=== PATIENT | male | born 1965 | race American Indian/Alaskan Native ===

== ENCOUNTER 2020-11-23 14:53 | Inpatient (IN) | payer OTHER ==
[~2020-11-23 14:53] MED LIST: KETOROLAC 30 MG/1 ML INJ ONE; ROCURONIUM 50 MG/5 ML INJ IV ONE
--- NOTE | 2020-11-23 15:25 | Emergency Department Report ---
ED General Adult HPI - General Chief complaint: Abdominal Pain Stated complaint: ABD PAIN PUI?: No Time Seen by Provider: 11/23/20 15:22 Source: patient, EMS ( EMS documentation not available at time of chart dictation ), RN notes reviewed Mode of arrival: Stretcher Limitations: Physical Limitation - History of Present Illness Initial comments: The patient was evaluated in the emergency department for symptoms described in the history of present illness. He/she was evaluated in the context of the global COVID-19 pandemic, which necessitated consideration that the patient might be at risk for infection with the virus that causes COVID-19. Institutional protocols and algorithms that pertain to the evaluation of patients at risk for COVID-19 are in a state of rapid change based on information released by regulatory bodies including the CDC and federal and state organizations. These policies and algorithms were followed during the patient's care in the emergency department. Please note that these policies, procedures and recommendations changed on a rapid basis. The patient is a 55-year-old gentleman. He is not known to myself previously. He denies chronic medical conditions. He occasionally consumes tobacco, and occasionally consumes cannabis. Denies history of abdominal surgeries. He presents to the ER with a complaint of acute on subacute abdominal pain, nausea vomiting. Patient states abdominal pain is diffuse. He denies fever, loss of taste and smell, admits to dry cough, denies chest pain, denies testicular pain and urinary symptoms. He was reportedly seen at another hospital yesterday, and diagnosed with nonspecific viral symptoms. Patient states no relief with taking a hot bath or hot shower. Abdominal pain is sharp and throbbing and aching, increases with palpation and and has no relieving factors -: Gradual, days(s) Location: abdomen Quality: other Consistency: constant Improves with: other Worsens with: other - Related Data Allergies Allergy/AdvReac Type Severity Reaction Status Date / Time No Known Allergies Allergy Unverified 11/23/20 15:26 ED Review of Systems ROS: Stated complaint: ABD PAIN Other details as noted in HPI Constitutional: diaphoresis, malaise, weakness. denies: fever Eyes: denies: eye discharge ENT: denies: epistaxis Respiratory: denies: cough Cardiovascular: denies: chest pain Gastrointestinal: abdominal pain, nausea, vomiting. denies: diarrhea, hemateme sis, melena, hematochezia Genitourinary: denies: dysuria, testicular pain Neurological: weakness Psychiatric: anxiety Hematological/Lymphatic: denies: easy bleeding ED Physical Exam - General Limitations: Physical Limitation General appearance: alert, anxious, in distress, obese - Head Head exam: Present: atraumatic, normocephalic - Eye Eye exam: Present: normal appearance, EOMI. Absent: nystagmus - ENT ENT exam: Present: normal exam, normal orophraynx, mucous membranes moist, normal external ear exam - Neck Neck exam: Present: normal inspection, full ROM. Absent: tenderness, meningismus - Respiratory Respiratory exam: Present: normal lung sounds bilaterally. Absent: respiratory distress, wheezes, rales, rhonchi, stridor, decreased breath sounds - Cardiovascular Cardiovascular Exam: Present: normal rhythm, tachycardia, normal heart sounds. Absent: bradycardia, irregular rhythm, systolic murmur, diastolic murmur, rubs, gallop - GI/Abdominal GI/Abdominal exam: Present: soft, tenderness, guarding (Voluntary guarding), r ebound. Absent: distended, rigid, pulsatile mass - exam: Present: normal inspection, other (There is normal testicular lie. There is normal cremasteric reflex. There is no testicular tenderness. There is no testicular swelling). Absent: testicular tenderness External exam: Present: normal external exam, other (Chaperoned by Anitra Álvarez) - Extremities Exam Extremities exam: Present: normal inspection, full ROM, other (2+ pulses noted in the bilateral upper and lower extremities. There is no palpable cord. negative Homans sign. Muscular compartments are soft. The pelvis is stable.). Absent: pedal edema, calf tenderness - Back Exam Back exam: Present: normal inspection, full ROM. Absent: tenderness, CVA tenderness (R), CVA tenderness (L), paraspinal tenderness, vertebral tenderness - Neurological Exam Neurological exam: Present: alert, oriented X3, other (No facial droop. Tongue midline. Extraocular movements intact bilaterally. Facial sensation intact to light touch in V1, V2, V3 distribution bilaterally. 5 and a 5 strength in 4 extremities. Sensation intact to light touch in 4 extremities.). Absent: motor sensory deficit - Psychiatric Psychiatric exam: Present: anxious - Skin Skin exam: Present: warm, dry, intact, normal color. Absent: rash ED Course Vital Signs 05/07/0411/23/20 11/23/20 15:24 15:26 17:06 Temperature 97.4 F L Pulse Rate 116 H 114 H 122 H Respiratory 17 32 H 28 H Rate Blood Pressure 186/79 O2 Sat by Pulse 100 96 Oximetry 11/23/20 11/23/20 17:30 18:46 Temperature Pulse Rate 135 H Respiratory 29 H 22 Rate Blood Pressure 169/76 169/76 O2 Sat by Pulse 92 93 Oximetry - Reevaluation(s) Reevaluation #1: 11/23/20 15:55 Differential diagnosis, including but not limited to: Mesenteric ischemia, colitis, diverticulitis, obstruction, cannabinoid hyperemesis syndrome, cyclic vomiting syndrome, pancreatitis, appendicitis Assessment and plan: 55-year-old gentleman, who appears uncomfortable, diaphoretic, with a soft abdomen, with pain out of proportion to examination. This is his second ER visit in as many days. We will treat his pain aggressively, obtain appropriate laboratory studies, EKG urinalysis, and obtain CT angiogram abdomen pelvis, with delayed venous phase contrast study. The patient is awake, alert, oriented, sober, and he is in moderate distress. Reassess after initial data points. Have discussed this plan of care with the patient, who verbalized understanding. Reevaluation #2: 11/23/20 16:56 This patient had a delay in acquisition of diagnostics secondary to phlebotomy team being unable to obtain appropriate blood specimens for diagnostic work-up. IV access was easily established by nursing team. I therefore personally placed a right-sided external jugular 20-gauge IV, with consent from the patient verbally, and withdrew 24 cc of typical blood, from his EJ, without difficulty. Reevaluation #3: 11/23/20 17:46 Laboratory studies, including glucose of 313 appreciated. Suspect that there may be a component of diabetic gastroparesis. Insulin, haloperidol ordered, additional IV fluids ordered. Reevaluation #4: 11/23/20 18:[address] scan abdomen pelvis suggest perforated viscus and free fluid in the right upper quadrant. Antibiotics ordered. Haloperidol canceled. We have de- escalating insulin therapy to 5 units. We contacted general surgery on-call, Dr. Vazquez. I discussed the patient's history, physical, pertinent laboratory studies and imaging studies. We have requested emergent general surgical consultation. Dr. Vazquez is in route to evaluate the patient. He indicates he will take the patient to the operating room. Hospital physician, Dr. Garcia, to admit patient to the medical service. Reevaluation #5: 11/23/20 19:09 Patient informed of diagnostics and results, and plan of care. The patient is amenable to admission and surgical intervention at this time. - EJ/Peripheral Line Neck R Time Out Performed: Yes Indications: multiple IV sites needed Skin Cleansed in Sterile Fashion: Yes Size: 20 Dressing Placed: Tegaderm Patient Tolerated Procedure: well ED Medical Decision Making - Lab Data Result diagrams: 11/23/20 16:56 11/23/20 16:56 Vital Signs 11/23/20 15:26 Temperature 97.4 F L Pulse Rate 114 H Respiratory 32 H Rate Blood Pressure 186/79 O2 Sat by Pulse 100 Oximetry Lab Results 11/23/20 11/23/20 11/23/20 Range/Units 16:56 16:56 16:56 WBC 8.4 (4.5-11.0) K/mm3 RBC 4.57 (3.65-5.03) M/mm3 Hgb 15.2 (11.8-15.2) gm/dl Hct 42.6 (35.5-45.6) % MCV 93 (84-94) fl MCH 33 H (28-32) pg MCHC 36 H (32-34) % RDW 13.1 L (13.2-15.2) % Plt Count 413 (140-440) K/mm3 Lymph % (Auto) 8.8 L (13.4-35.0) % [place] % (Auto) 7.5 H (0.0-7.3) % Eos % (Auto) 0.0 (0.0-4.3) % Baso % (Auto) 0.9 (0.0-1.8) % Lymph # (Auto) 0.7 L (1.2-5.4) K/mm3 [place] # (Auto) 0.6 (0.0-0.8) K/mm3 Eos # (Auto) 0.0 (0.0-0.4) K/mm3 Baso # (Auto) 0.1 (0.0-0.1) K/mm3 Seg Neutrophils % 82.8 H (40.0-70.0) % Seg Neutrophils # 6.9 (1.8-7.7) K/mm3 PT 14.3 (12.2-14.9) Sec. INR 1.13 (0.87-1.13) Sodium 137 (137-145) mmol/L Potassium 4.0 (3.6-5.0) mmol/L Chloride 99.8 (98-107) mmol/L Carbon Dioxide 21 L (22-30) mmol/L Anion Gap 20 mmol/L BUN 15 (9-20) mg/dL Creatinine 0.8 (0.8-1.3) mg/dL Estimated GFR > 60 ml/min BUN/Creatinine Ratio 19 % Glucose 313 H (75-100) mg/dL Lactic Acid (0.7-2.0) mmol/L Calcium 8.7 (8.4-10.2) mg/dL Magnesium (1.7-2.3) mg/dL Total Bilirubin 1.60 H (0.1-1.2) mg/dL Direct Bilirubin 0.4 H (0-0.2) mg/dL Indirect Bilirubin 1.2 mg/dL AST 17 (5-40) units/L ALT 13 (7-56) units/L Alkaline Phosphatase 71 (35-129) units/L Total Creatine Kinase (55-170) units/L Troponin T (0.00-0.029) ng/mL Total Protein 7.6 (6.3-8.2) g/dL Albumin 3.8 L (3.9-5) g/dL Albumin/Globulin Ratio 1.0 % Lipase (13-60) units/L 11/23/20 11/23/20 11/23/20 Range/Units 16:56 16:56 16:56 WBC (4.5-11.0) K/mm3 RBC (3.65-5.03) M/mm3 Hgb (11.8-15.2) gm/dl Hct (35.5-45.6) % MCV (84-94) fl MCH (28-32) pg MCHC (32-34) % RDW (13.2-15.2) % Plt Count (140-440) K/mm3 Lymph % (Auto) (13.4-35.0) % [place] % (Auto) (0.0-7.3) % Eos % (Auto) (0.0-4.3) % Baso % (Auto) (0.0-1.8) % Lymph # (Auto) (1.2-5.4) K/mm3 [place] # (Auto) (0.0-0.8) K/mm3 Eos # (Auto) (0.0-0.4) K/mm3 Baso # (Auto) (0.0-0.1) K/mm3 Seg Neutrophils % (40.0-70.0) % Seg Neutrophils # (1.8-7.7) K/mm3 PT (12.2-14.9) Sec. INR (0.87-1.13) Sodium (137-145) mmol/L Potassium (3.6-5.0) mmol/L Chloride (98-107) mmol/L Carbon Dioxide (22-30) mmol/L Anion Gap mmol/L BUN (9-20) mg/dL Creatinine (0.8-1.3) mg/dL Estimated GFR ml/min BUN/Creatinine Ratio % Glucose (75-100) mg/dL Lactic Acid 1.90 (0.7-2.0) mmol/L Calcium (8.4-10.2) mg/dL Magnesium 2.10 (1.7-2.3) mg/dL Total Bilirubin (0.1-1.2) mg/dL Direct Bilirubin (0-0.2) mg/dL Indirect Bilirubin mg/dL AST (5-40) units/L ALT (7-56) units/L Alkaline Phosphatase (35-129) units/L Total Creatine Kinase 86 (55-170) units/L Troponin T < 0.010 (0.00-0.029) ng/mL Total Protein (6.3-8.2) g/dL Albumin (3.9-5) g/dL Albumin/Globulin Ratio % Lipase 18 (13-60) units/L Lab Results 11/23/20 11/23/20 11/23/20 Range/Units 16:56 16:56 16:56 WBC 8.4 (4.5-11.0) K/mm3 RBC 4.57 (3.65-5.03) M/mm3 Hgb 15.2 (11.8-15.2) gm/dl Hct 42.6 (35.5-45.6) % MCV 93 (84-94) fl MCH 33 H (28-32) pg MCHC 36 H (32-34) % RDW 13.1 L (13.2-15.2) % Plt Count 413 (140-440) K/mm3 Lymph % (Auto) 8.8 L (13.4-35.0) % [place] % (Auto) 7.5 H (0.0-7.3) % Eos % (Auto) 0.0 (0.0-4.3) % Baso % (Auto) 0.9 (0.0-1.8) % Lymph # (Auto) 0.7 L (1.2-5.4) K/mm3 [place] # (Auto) 0.6 (0.0-0.8) K/mm3 Eos # (Auto) 0.0 (0.0-0.4) K/mm3 Baso # (Auto) 0.1 (0.0-0.1) K/mm3 Seg Neutrophils % 82.8 H (40.0-70.0) % Seg Neutrophils # 6.9 (1.8-7.7) K/mm3 PT 14.3 (12.2-14.9) Sec. INR 1.13 (0.87-1.13) Sodium 137 (137-145) mmol/L Potassium 4.0 (3.6-5.0) mmol/L Chloride 99.8 (98-107) mmol/L Carbon Dioxide 21 L (22-30) mmol/L Anion Gap 20 mmol/L BUN 15 (9-20) mg/dL Creatinine 0.8 (0.8-1.3) mg/dL Estimated GFR > 60 ml/min BUN/Creatinine Ratio 19 % Glucose 313 H (75-100) mg/dL Lactic Acid (0.7-2.0) mmol/L Calcium 8.7 (8.4-10.2) mg/dL Magnesium (1.7-2.3) mg/dL Total Bilirubin 1.60 H (0.1-1.2) mg/dL Direct Bilirubin 0.4 H (0-0.2) mg/dL Indirect Bilirubin 1.2 mg/dL AST 17 (5-40) units/L ALT 13 (7-56) units/L Alkaline Phosphatase 71 (35-129) units/L Total Creatine Kinase (55-170) units/L Troponin T (0.00-0.029) ng/mL Total Protein 7.6 (6.3-8.2) g/dL Albumin 3.8 L (3.9-5) g/dL Albumin/Globulin Ratio 1.0 % Lipase (13-60) units/L 11/23/20 11/23/20 11/23/20 Range/Units 16:56 16:56 16:56 WBC (4.5-11.0) K/mm3 RBC (3.65-5.03) M/mm3 Hgb (11.8-15.2) gm/dl Hct (35.5-45.6) % MCV (84-94) fl MCH (28-32) pg MCHC (32-34) % RDW (13.2-15.2) % Plt Count (140-440) K/mm3 Lymph % (Auto) (13.4-35.0) % [place] % (Auto) (0.0-7.3) % Eos % (Auto) (0.0-4.3) % Baso % (Auto) (0.0-1.8) % Lymph # (Auto) (1.2-5.4) K/mm3 [place] # (Auto) (0.0-0.8) K/mm3 Eos # (Auto) (0.0-0.4) K/mm3 Baso # (Auto) (0.0-0.1) K/mm3 Seg Neutrophils % (40.0-70.0) % Seg Neutrophils # (1.8-7.7) K/mm3 PT (12.2-14.9) Sec. INR (0.87-1.13) Sodium (137-145) mmol/L Potassium (3.6-5.0) mmol/L Chloride (98-107) mmol/L Carbon Dioxide (22-30) mmol/L Anion Gap mmol/L BUN (9-20) mg/dL Creatinine (0.8-1.3) mg/dL Estimated GFR ml/min BUN/Creatinine Ratio % Glucose (75-100) mg/dL Lactic Acid 1.90 (0.7-2.0) mmol/L Calcium (8.4-10.2) mg/dL Magnesium 2.10 (1.7-2.3) mg/dL Total Bilirubin (0.1-1.2) mg/dL Direct Bilirubin (0-0.2) mg/dL Indirect Bilirubin mg/dL AST (5-40) units/L ALT (7-56) units/L Alkaline Phosphatase (35-129) units/L Total Creatine Kinase 86 (55-170) units/L Troponin T < 0.010 (0.00-0.029) ng/mL Total Protein (6.3-8.2) g/dL Albumin (3.9-5) g/dL Albumin/Globulin Ratio % Lipase 18 (13-60) units/L - EKG Data -: EKG Interpreted by Al EKG shows normal: sinus rhythm Rate: tachycardia - EKG Data When compared to previous EKG there are: previous EKG unavailable 11/23/20 16:44 Sinus tachycardia, 117 bpm. Left axis deviation, left anterior fascicular block, incomplete right bundle branch block. QTC 499 ms. Normal P wave axis. This is an abnormal EKG. This is not a STEMI. There is no prior EKG available for comparison. Time of interpretation: 16: 42 PM - Radiology Data Radiology results: pending, report reviewed, image reviewed [facility] [address] [place] [address] Cat Scan Report Signed Patient: NEELIMA ALVARES MR#: [id number] : 1965 Acct:[id number] Age/Sex: 55 / M ADM Date: 11/23/20 Loc: ED Attending Dr: Ordering Physician: SERAFIN SHEARER MD Date of Service: 11/23/20 Procedure(s): CT angio abdomen pelvis Accession Number(s): [id number] cc: SERAFIN SHEARER MD CTA ABDOMEN AND PELVIS WITHOUT AND WITH IV CONTRAST INDICATION: acute abd painn/v. TECHNIQUE: Axial CT images were obtained through the abdomen and pelvis before and after after injection of IV contrast. 3 plane MIP reconstructions were produced. All CT scans at this location are performed using CT dose reduction for ALARA by means of automated exposure control. COMPARISON: None available. FINDINGS: Aorta: Moderate atherosclerotic vascular calcifications. No dissection or aneurysm Renal arteries: No acute abnormality. Celiac artery: No acute abnormality. Superior mesenteric artery: No acute abnormality. Inferior mesenteric artery: No acute abnormality. Right iliac arteries: Moderate vascular calcifications. Left iliac arteries: Moderate vascular calcifications. LOWER CHEST: No significant abnormality. LIVER: No significant abnormality. GALLBLADDER: No significant abnormality. BILE DUCTS: No significant abnormality. PANCREAS: No significant abnormality. SPLEEN: No significant abnormality. ADRENALS: No significant abnormality. RIGHT KIDNEY and URETER: No significant abnormality. LEFT KIDNEY and URETER: 2 tiny subcentimeter cysts. STOMACH and SMALL BOWEL: 2 cm ulcer within the proximal duodenum image 34. Moderate duodenal wall thickening. Diffuse enhancement of small bowel and mild small bowel thickening characteristic for pe ritonitis. COLON: No significant abnormality. APPENDIX: No significant abnormality. PERITONEUM: Moderate amount of free fluid upper abdomen small amount of free pelvic fluid. Moderate pneumoperitoneum. No fluid collection. LYMPH NODES: No significant adenopathy. AORTA and ARTERIES: No significant abnormality. IVC and VEINS: No significant abnormality. ADDITIONAL FINDINGS: None. SKELETAL SYSTEM: No significant abnormality. Skeletal Structures: No acute osseous abnormality. IMPRESSION: 1. Perforated duodenal ulcer with moderate pneumoperitoneum, moderate amount of free fluid and diffuse peritonitis. CRITICAL RESULT: Perforated duodenal ulcer with moderate pneumoperitoneum Time of Discovery (CASUALTY UNDERWRITER/CDT): 5:50 PM 11/23/2020 Time of Communication (CASUALTY UNDERWRITER/CDT): 5:54 PM Central standard time 11/23/2020 Licensed Practitioner Receiving Report: Serafin Shearer MD Read-Back Performed: Yes. Signer Name: Ric Hinojosa MD Signed: 11/23/2020 6:57 PM Workstation Name: [id number] Transcribed By: TL Dictated By: Ric Hinojosa MD Electronically Authenticated By: Ric Hinojosa MD Signed Date/Time: 11/23/201856 DD/ 51 Critical Care Time: Yes Critical care time in (mins) excluding proc time.: 35 Critical care attestation.: If time is entered above; I have spent that time in minutes in the direct care of this critically ill patient, excluding procedure time. Critical Care Time: Critical care time includes multiple bedside reevaluations, interpretation of laboratory studies, radiology studies, discussion with multiple consulting services, including hospital medicine, and general surgery, and time spent updating patient on plan of care. This does not include procedure time. This patient is critically ill, with peritonitis, secondary to perforated small bowel. This requires emergent general surgical intervention, and without can gent intervention or diagnostics as performed, the patient would likely ED Disposition Clinical Impression: Acute abdominal pain, Hyperglycemia, Elevated blood pressure reading, Perforated abdominal viscus Disposition: OP ADMIT IP TO THIS HOSP Is pt being admited?: Yes Does the pt Need Aspirin: No Condition: Serious Referrals: PRIMARY CARE, [Primary Care Provider] - 3-5 Days
[2020-11-23] MEDS ORDERED: SODIUM CHLORIDE 0.9% 1000 ML 1,000 ML IV ONE (15:28)
[2020-11-23] MEDS ORDERED: HYDROmorphone 1 MG/1 ML INJ IV ONE ×3 (15:28→18:53)
[2020-11-23] MEDS ORDERED: ONDANSETRON 4 MG/2 ML INJ IV ONE (16:00)
[2020-11-23 17:08] LABS: Basophils # (Auto) 0.1 K/mm3 (0.0-0.1); Basophils % (Auto) 0.9 % (0.0-1.8); Lymphocytes # (Auto) 0.7 K/mm3 (1.2-5.4); Lymphocytes % (Auto) 8.8 % (13.4-35.0); Mean Corpuscular HGB Conc 36 % (32-34); Mean Corpuscular Volume 93 fl (84-94); Monocytes # (Auto) 0.6 K/mm3 (0.0-0.8); Monocytes % (Auto) 7.5 % (0.0-7.3); Platelet Count 413 K/mm3 (140-440); Red Blood Count 4.57 M/mm3 (3.65-5.03); Red Cell Distribution Width 13.1 % (13.2-15.2)
[2020-11-23 17:10] LABS: Hematocrit 42.6 % (35.5-45.6); Hemoglobin 15.2 gm/dl (11.8-15.2)
[2020-11-23 17:22] LABS: INR 1.13 (0.87-1.13)
[2020-11-23 17:39] LABS: Alanine Aminotransferase 13 units/L (7-56); Albumin 3.8 g/dL (3.9-5); BUN/Creatinine Ratio 19; Bilirubin,Direct 0.4 mg/dL (0-0.2); Blood Urea Nitrogen 15 mg/dL (9-20); Calcium 8.7 mg/dL (8.4-10.2); Hemolysis Index 13
[2020-11-23] MEDS ORDERED: HALOPERIDOL LACTATE 5 MG/1 ML INJ IM ONE (17:41)
[2020-11-23] MEDS ORDERED: INSULIN REGULAR, HUMAN 100 UNITS/1 ML IV ONE ×3 (17:41→23:57)
[2020-11-23] MEDS ORDERED: LACTATED RINGERS 1,000 ML IV ONE (17:41)
[2020-11-23] MEDS ORDERED: PIPERACIL/TAZOBACTA 4.5/NS 100 4.5 GM/100 ML VIAL IV ONE (18:51)
[2020-11-23] MEDS ORDERED: PANTOPRAZOLE 40 MG INJ IV ONE (18:54)
[2020-11-23] MEDS ORDERED: ALBUTEROL 2.5 MG/3 ML NEBU IH PRN (18:58)
--- NOTE | 2020-11-23 18:59 | History and Physical Report ---
History of Present Illness Chief complaint: My stomach hurts History of present illness: 55 YO Male with Nicotine Dependence presents to ED for evaluation. Patient reports "my stomach hurts". Patient states that he has experienced abdominal pain over the past 2 weeks with worsening symptoms over the past 1 day. Patient states that the symptoms were initially intermittent in nature but have become more persistent with persistent over the ensuing timeframe. Patient states that his pain is 6/10, constant, worsened with palpitation, diffuse. EMS was notified and upon arrival the patient was found to be in distress and subsequently transported to [facility] for further care and evaluation of the aforementioned symptoms. The patient was seen and evaluated in the emergency department. All lab and imaging studies reviewed. Patient underwent CT scan of the abdomen pelvis which revealed perforated viscus. Patient found to have clinical symptoms consistent with acute peritonitis. Surgical team consulted. Patient treated with empiric IV antibiotic therapy. Patient taken urgently to the operating room for surgical intervention. Patient denies fever, chills, chest pain, palpitation, productive cough, skin rash, recent ill contacts, ingestion of food/water from new or different sources, bright red blood per rectum, trauma, or known exposure to COVID-19. No prior admission for review. No medication listed at time of admission for reconciliation. Past History Past Medical History: other (See HPI) Past Surgical History: No surgical history, Other (Reviewed) Social history: , lives with family, smoking Family history: diabetes, hypertension Medications and Allergies Allergies Allergy/AdvReac Type Severity Reaction Status Date / Time No Known Allergies Allergy Unverified 11/23/20 15:26 Active Meds: Active Medications Piperacillin Sod/Tazobactam Sod (Zosyn/Ns 4.5gm/100ml) 4.5 gm in 100 mls @ 200 mls/hr IV ONCE ONE; Protocol Stop: 11/23/20 19:20 Review of Systems Constitutional: no weight loss, no weight gain, no fever, no sweats Ears, nose, mouth and throat: no ear pain, no ear discharge, no nose pain, no nasal discharge Cardiovascular: no chest pain, no orthopnea, no palpitations, no edema, no syn cope, no lightheadedness Respiratory: no cough, no cough with sputum, no hemoptysis, no dyspnea on exertion Gastrointestinal: abdominal pain, no nausea, no vomiting, no diarrhea, no constipation, no BRBPR, no melena Genitourinary Male: no hematuria, no flank pain, no discharge, no urinary frequency, no urinary hesitancy Rectal: no pain, no incontinence, no bleeding Musculoskeletal: no neck stiffness, no neck pain, no arm numbness/tingling, no shooting leg pain Integumentary: no rash, no pruritis, no redness, no sores, no wounds Neurological: no head injury, no transient paralysis, no paralysis, no parathesias, no numbness, no tingling Psychiatric: no anxiety, no memory loss, no hypersomnia, no change in appetite, no change in libido, no suicidal ideation Endocrine: no cold intolerance, no heat intolerance, no polyphagia, no excessive thirst, no polydipsia, no nocturia, no excessive sweating Hematologic/Lymphatic: no easy bruising, no easy bleeding Allergic/Immunologic: no urticaria, no allergic rhinitis, no wheezing Exam - Constitutional Vitals: Temp Pulse Resp BP Pulse Ox 97.4 F L 135 H 22 169/76 93 11/23/20 15:26 11/23/20 17:30 11/23/20 18:46 11/23/20 18:46 11/23/20 18:46 General appearance: Present: mild distress - EENT Eyes: Present: PERRL ENT: hearing intact, clear oral mucosa - Neck Neck: Present: supple, normal ROM - Respiratory Respiratory effort: normal Respiratory: bilateral: CTA - Cardiovascular Heart Sounds: Present: S1 & S2. Absent: rub, click - Extremities Extremities: pulses symmetrical, No edema Peripheral Pulses: within normal limits - Abdominal General gastrointestinal: Present: soft, tender, distended, rigid, hypoactive bowel sounds Male genitourinary: Present: normal - Integumentary Integumentary: Present: clear, warm, dry - Musculoskeletal Musculoskeletal: gait normal, strength equal bilaterally - Psychiatric Psychiatric: appropriate mood/affect, intact judgment & insight - Neurologic Neurologic: CNII-XII intact, moves all extremities HEART Score - HEART Score Troponin: Troponin T < 0.010 ng/mL (0.00-0.029) 11/23/20 16:56 Results - Labs CBC & Chem 7: 11/23/20 16:56 11/23/20 16:56 Labs: Abnormal lab results 11/23/20 11/23/20 Range/Units 16:56 16:56 MCH 33 H (28-32) pg MCHC 36 H (32-34) % RDW 13.1 L (13.2-15.2) % Lymph % (Auto) 8.8 L (13.4-35.0) % [place] % (Auto) 7.5 H (0.0-7.3) % Lymph # (Auto) 0.7 L (1.2-5.4) K/mm3 Seg Neutrophils % 82.8 H (40.0-70.0) % Carbon Dioxide 21 L (22-30) mmol/L Glucose 313 H (75-100) mg/dL Total Bilirubin 1.60 H (0.1-1.2) mg/dL Direct Bilirubin 0.4 H (0-0.2) mg/dL Albumin 3.8 L (3.9-5) g/dL Assessment and Plan - Patient Problems (1) Acute peritonitis Current Visit: Yes Status: Acute Plan to address problem: CT scan abdomen and pelvis, empiric IV antibiotic therapy, surgical team consulted. Patient pending surgical intervention, pain control, supportive care, n.p.o., IV fluid resuscitation therapy. Serial abdominal exam. Further care as per surgical team. (2) Perforated abdominal viscus Current Visit: Yes Status: Acute Plan to address problem: CT scan abdomen and pelvis, serial abdominal exam, surgical team consulted, patient is pending surgical intervention, supportive care. (3) Nicotine dependence Current Visit: Yes Status: Acute Qualifiers: Nicotine product type: cigarettes Substance use status: in withdrawal Qualified Code(s): F17.213 - Nicotine dependence, cigarettes, with withdrawal Plan to address problem: Smoking cessation counseling, supportive care, behavior change counseling, +15 minutes. (4) DVT prophylaxis Current Visit: Yes Status: Acute Plan to address problem: SCD to bilateral lower extremities while in bed.
--- NOTE | 2020-11-23 19:02 | Cat Scan Report ---
CTA ABDOMEN AND PELVIS WITHOUT AND WITH IV CONTRAST INDICATION: acute abd painn/v. TECHNIQUE: Axial CT images were obtained through the abdomen and pelvis before and after after injection of IV c ontrast. 3 plane MIP reconstructions were produced. All CT scans at this location are performed using CT dose reduction for ALARA by means of automated exposure control. COMPARISON: None available. FINDINGS: Aorta: Moderate atherosclerotic vascular calcifications. No dissection or aneurysm Renal arteries: No acute abnormality. Celiac artery: No acute abnormality. Superior mesenteric artery: No acute abnormality. Inferior mesenteric artery: No acute abnormality. Right iliac arteries: Moderate vascular calcifications. Left iliac arteries: Moderate vascular calcifications. LOWER CHEST: No significant abnormality. LIVER: No significant abnormality. GALLBLADDER: No significant abnormality. BILE DUCTS: No significant abnormality. PANCREAS: No significant abnormality. SPLEEN: No significant abnormality. ADRENALS: No significant abnormality. RIGHT KIDNEY and URETER: No significant abnormality. LEFT KIDNEY and URETER: 2 tiny subcentimeter cysts. STOMACH and SMALL BOWEL: 2 cm ulcer within the proximal duodenum image 34. Moderate duodenal wall thi ckening. Diffuse enhancement of small bowel and mild small bowel thickening characteristic for perito nitis. COLON: No significant abnormality. APPENDIX: No significant abnormality. PERITONEUM: Moderate amount of free fluid upper abdomen small amount of free pelvic fluid. Moderate p neumoperitoneum. No fluid collection. LYMPH NODES: No significant adenopathy. AORTA and ARTERIES: No significant abnormality. IVC and VEINS: No significant abnormality. ADDITIONAL FINDINGS: None. SKELETAL SYSTEM: No significant abnormality. Skeletal Structures: No acute osseous abnormality. IMPRESSION: 1. Perforated duodenal ulcer with moderate pneumoperitoneum, moderate amount of free fluid and diffus e peritonitis. CRITICAL RESULT: Perforated duodenal ulcer with moderate pneumoperitoneum Time of Discovery (CAP SEWER/CDT): 5:50 PM 11/23/2020 Time of Communication (CAP SEWER/CDT): 5:54 PM Central standard time 11/23/2020 Licensed Practitioner Receiving Report: Serafin Shearer MD Read-Back Performed: Yes. Signer Name: Ric Hinojosa MD Signed: 11/23/2020 6:57 PM Workstation Name: [id number]
--- NOTE | 2020-11-23 20:04 | Anesthesia Consultation ---
Anesthesia Consult and Med Hx Date of service: 11/23/20 - Airway Anesthetic Teeth Evaluation: Edentulous ROM Head & Neck: Adequate Mental/Hyoid Distance: Adequate Mallampati Class: Class II Intubation Access Assessment: Good - Pulmonary Exam CTA: Yes - Cardiac Exam Cardiac Exam: RRR - Pre-Operative Health Status ASA Pre-Surgery Classification: ASA2 Proposed Anesthetic Plan: General - Pulmonary Hx Smoking: Yes - Other Systems Hx Alcohol Use: Yes Hx Substance Use: Yes (thc)
--- NOTE | 2020-11-23 20:04 | Anesthesia Day of Surgery ---
Anesthesia Day of Surgery - Day of Surgery Patient Examined: Yes Patient H&P Reviewed: Yes Patient is NPO: Yes
[2020-11-23] MEDS ORDERED: HEPARIN 5,000 UNIT/1 ML VIAL ONE (20:24)
[2020-11-23] MEDS ORDERED: ONDANSETRON 4 MG/2 ML INJ ONE (21:00)
[2020-11-23] MEDS ORDERED: MIDAZOLAM 2 MG/2 ML INJ ONE (21:01)
[2020-11-23] MEDS ORDERED: propofoL 200 MG/20 ML VIAL IV ONE (21:01)
[2020-11-23] MEDS ORDERED: fentaNYL 100 MCG/2 ML INJ ONE (21:01)
--- NOTE | 2020-11-23 21:04 | Consultation ---
History of Present Illness Consult date: 11/23/20 Reason for consult: abdominal pain - History of present illness History of present illness: 55 yo male with several days of progressively severe upper abdominal pain associated with nausea. Denies NSAID or steroid use. No h/o diverticulosis. Past History Past Medical History: other (See HPI) Past Surgical History: No surgical history, Other (Reviewed) Social history: , lives with family, smoking Family history: diabetes, hypertension Medications and Allergies Allergies Allergy/AdvReac Type Severity Reaction Status Date / Time No Known Allergies Allergy Unverified 11/23/20 15:26 Active Meds: Active Medications Albuterol (Albuterol 2.5 Mg/3 Ml Nebu) 2.5 mg IH Q3HRT PRN PRN Reason: Shortness Of Breath Morphine Sulfate (Morphine 2 Mg/1 Ml Inj) 2 mg IV Q4H PRN PRN Reason: Pain, Moderate (4-6) Sodium Chloride (Sodium Chloride 0.9% 10 Ml Flush Syringe) 10 ml IV BID MATEUSZ Sodium Chloride (Sodium Chloride 0.9% 10 Ml Flush Syringe) 10 ml IV PRN PRN PRN Reason: LINE FLUSH Review of Systems All systems: negative (none) Exam Vital Signs Pulse Resp 116 H 17 11/23/20 15:24 11/23/20 15:24 - General physical appearance Positive: well developed, well nourished, no distress - Eyes Positive: PERRL, normal occular movement - ENT Positive: normal pinna, normal nares, normal mucosa, no hearing loss, no congestion - Neck Positive: no masses, no bruits, trachea midline, no venous distension - Respiratory Positive: normal expansion, normal respiratory effort, clear to auscultation - Cardiovascular Rhythm: regular Heart Sounds: Present: S1 & S2. Absent: rub, click - Extremities Extremities: no ischemia, pulses symmetrical, No edema - Breasts Breasts: normal, no mass, no skin changes - Abdomen Abdomen: Present: other (Mildly distended with hypoactive BS. Moderately tender, abisai in the epigastrium with moderate rebound and guarding.) Hernia: none - Genitourinary Male Genitourinary: normal Female Genitourinary: normal - Integumentary no rash, no growths, no abnormal pigmentation - Neurologic Neurologic: alert and oriented to time, place and person, motor strength and sensation are grossly intact - Musculoskeletal normal gait, normal posture - Psychiatric Psychiatric: appropriate mood/affect, intact judgment & insight Results - Labs 11/23/20 16:56 11/23/20 16:56 Abnormal lab results 11/23/20 11/23/20 Range/Units 16:56 16:56 MCH 33 H (28-32) pg MCHC 36 H (32-34) % RDW 13.1 L (13.2-15.2) % Lymph % (Auto) 8.8 L (13.4-35.0) % [place] % (Auto) 7.5 H (0.0-7.3) % Lymph # (Auto) 0.7 L (1.2-5.4) K/mm3 Seg Neutrophils % 82.8 H (40.0-70.0) % Carbon Dioxide 21 L (22-30) mmol/L Glucose 313 H (75-100) mg/dL Total Bilirubin 1.60 H (0.1-1.2) mg/dL Direct Bilirubin 0.4 H (0-0.2) mg/dL Albumin 3.8 L (3.9-5) g/dL Diabetes panel 11/23/20 Range/Units 16:56 Sodium 137 (137-145) mmol/L Potassium 4.0 (3.6-5.0) mmol/L Chloride 99.8 (98-107) mmol/L Carbon Dioxide 21 L (22-30) mmol/L BUN 15 (9-20) mg/dL Creatinine 0.8 (0.8-1.3) mg/dL Glucose 313 H (75-100) mg/dL Calcium 8.7 (8.4-10.2) mg/dL AST 17 (5-40) units/L ALT 13 (7-56) units/L Alkaline Phosphatase 71 (35-129) units/L Total Protein 7.6 (6.3-8.2) g/dL Albumin 3.8 L (3.9-5) g/dL Calcium panel 11/23/20 Range/Units 16:56 Calcium 8.7 (8.4-10.2) mg/dL Albumin 3.8 L (3.9-5) g/dL Pituitary panel 11/23/20 Range/Units 16:56 Sodium 137 (137-145) mmol/L Potassium 4.0 (3.6-5.0) mmol/L Chloride 99.8 (98-107) mmol/L Carbon Dioxide 21 L (22-30) mmol/L BUN 15 (9-20) mg/dL Creatinine 0.8 (0.8-1.3) mg/dL Glucose 313 H (75-100) mg/dL Calcium 8.7 (8.4-10.2) mg/dL Adrenal panel 11/23/20 Range/Units 16:56 Sodium 137 (137-145) mmol/L Potassium 4.0 (3.6-5.0) mmol/L Chloride 99.8 (98-107) mmol/L Carbon Dioxide 21 L (22-30) mmol/L BUN 15 (9-20) mg/dL Creatinine 0.8 (0.8-1.3) mg/dL Glucose 313 H (75-100) mg/dL Calcium 8.7 (8.4-10.2) mg/dL Total Bilirubin 1.60 H (0.1-1.2) mg/dL AST 17 (5-40) units/L ALT 13 (7-56) units/L Alkaline Phosphatase 71 (35-129) units/L Total Protein 7.6 (6.3-8.2) g/dL Albumin 3.8 L (3.9-5) g/dL - Imaging CT scan - abdomen: report reviewed CT scan - pelvis: report reviewed Assessment and Plan - Patient Problems (1) Perforated abdominal viscus Current Visit: Yes Status: Acute Plan to address problem: 1) IV Zosyn 2) IV Protonix 3) To OR for exploratory laparotomy and oversewing of perforated duodenal ulcer 4) NG decompression for several days
[2020-11-23] MEDS ORDERED: SODIUM CHLORIDE 0.9% IRR 1,500 ML BOTTLE IR ONE (21:42)
[2020-11-23] MEDS ORDERED: HYDROmorphone 1 MG/1 ML INJ ONE (22:01)
[2020-11-23] MEDS ORDERED: GLYCOPYRROLATE 0.4 MG/2 ML INJ ONE (22:34)
[2020-11-23] MEDS ORDERED: NEOSTIGMINE 10MG/10 ML INJ MDV ONE (22:34)
--- NOTE | 2020-11-23 22:45 | Procedure Note ---
Date of procedure: 11/23/20 Pre-op diagnosis: Perforated duodenal bulb ulcer Post-op diagnosis: same Procedure: Oversew of perforated duodenal ulcer and omentoplasty Description of procedure: Pt was placed supine on the OR table. GETA was administered. Abdomen was prepped and draped. Peritoneal cavity was entered via a midline incision from the xiphoid to the umbilicus. On entering the peritoneal cavity, a large amount of brown colored fluid was expressed which was cultured and then aspirated. Lower edge of the liver was retracted cephalad revealing a large, 2.8 cm perforation of the anterior duodenal bulb. The inflammation was quite severe and confirmation that the above was indeed the perforation was made by passing the NG tube through the pylorus and identifying the NG tube within the perforated area. The perforation was closed with multiple interrupted sutures of 2-0 silk. An omentoplasty was then performed by securing a segment of the transverse colon omentum over the perforation using the previously placed 2-0 silk sutures. Peritoneal cavity was then irrigated with 2 liters of warm saline and all fluid was then aspirated. NG tip was pulled back and the tip confirmed in the mid-body of the stomach. Midline fascia was approximated with a running, looped #1 PDS suture. SQ tissue was packed open with a dilute Betadine moistened Kerlix roll followed by an ABD and Medipore tape. Pt tolerated the procedure well. Pt was extubated in the OR and was taken to PACU in stable condition. Anesthesia: GETA Surgeon: BOOKER RICE Estimated blood loss: minimal Pathology: list (C&S) Specimen disposition: to lab Condition: stable Disposition: PACU
[2020-11-23] MEDS ORDERED: INSULIN REGULAR, HUMAN 100 UNITS/1 ML SUB-Q ONE (23:02)
[2020-11-23] MEDS ORDERED: HYDROmorphone 1 MG/1 ML INJ IV PRN (23:23)
--- NOTE | 2020-11-23 23:25 | Post Anesthesia Evaluation ---
- Post Anesthesia Evaluation Patient Participated: Yes Airway Patent: Yes Stable Respiratory Function: Yes Nausea/Vomiting: No Temp > 96.8F: Yes Pain Manageable: Yes Adequeate Hydration: Yes Anesthesia Complications: No Block Receding Appropriately: Yes Patient on Ventilator: No
[2020-11-23] MEDS: HYDROmorphone 1 MG/1 ML INJ IV PRN (23:27)
[2020-11-24] MEDS ORDERED: LACTATED RINGERS 1,000 ML ONE ×2 (00:07→21:23)
[2020-11-24] MEDS: PIPERACIL/TAZOBACTA 4.5/NS 100 4.5 GM/100 ML VIAL IV SCH ×3 (04:19→19:30)
[2020-11-24 06:17] LABS: Bacteria,Urine 1+ /HPF (Negative); Bilirubin,Urine NEG (Negative); Blood,Urine SM (Negative); Color,Urine Amber (Yellow); Mucus,Urine FEW /HPF; Urobilinogen,Urine < 2.0 mg/dL (<2.0)
[2020-11-24 06:22] LABS: Amphetamine Screen,Urine PRESUMPTIVE NEGATIVE; Benzodiazepines Screen,Urine PRESUMPTIVE POSITIVE; Cannabinoid Screen,Urine PRESUMPTIVE POSITIVE; Cocaine Screen,Urine PRESUMPTIVE NEGATIVE; Methadone Screen,Urine PRESUMPTIVE NEGATIVE; Opiate Screen,Urine PRESUMPTIVE NEGATIVE
[2020-11-24 07:58] LABS: Basophils % (Auto) 0.1 % (0.0-1.8); Lymphocytes # (Auto) 0.5 K/mm3 (1.2-5.4); Lymphocytes % (Auto) 8.1 % (13.4-35.0); Mean Corpuscular HGB Conc 36 % (32-34); Mean Corpuscular Volume 93 fl (84-94); Monocytes # (Auto) 0.5 K/mm3 (0.0-0.8); Monocytes % (Auto) 7.8 % (0.0-7.3); Platelet Count 307 K/mm3 (140-440); Red Blood Count 4.13 M/mm3 (3.65-5.03); Red Cell Distribution Width 13.5 % (13.2-15.2)
[2020-11-24 07:59] LABS: Hematocrit 38.4 % (35.5-45.6); Hemoglobin 13.9 gm/dl (11.8-15.2)
[2020-11-24 08:14] LABS: BUN/Creatinine Ratio 19; Blood Urea Nitrogen 19 mg/dL (9-20); Calcium 7.9 mg/dL (8.4-10.2); Hemolysis Index 4
--- NOTE | 2020-11-24 09:09 | Progress Note ---
Assessment and Plan Assessment and plan: 55 yo male with several days of progressively severe upper abdominal pain associated with nausea. Acute peritonitis Perforated abdominal viscus Nicotine dependence 11/24/2020. Patient is POD #1 for exploratory laparotomy and oversewing of perforated duodenal ulcer. Continue NG decompression for several days per surgery. Continue IV antibiotics with Zosyn. Continue IV Protonix History Interval history: No new issues overnight. Hospitalist Physical - Constitutional Vitals: Temp Pulse Resp BP Pulse Ox 99.5 F 114 H 18 111/67 97 11/24/20 07:23 11/24/20 07:23 11/24/20 07:23 11/24/20 07:23 11/24/20 07:23 General appearance: Present: mild distress - EENT Eyes: Present: PERRL, EOM intact ENT: hearing intact, clear oral mucosa, dentition normal - Neck Neck: Present: supple, normal ROM - Respiratory Respiratory effort: normal Respiratory: bilateral: CTA - Cardiovascular Rhythm: regular Heart Sounds: Present: S1 & S2. Absent: gallop, rub - Extremities Extremities: no ischemia, No edema, Full ROM - Abdominal General gastrointestinal: soft, non-tender, non-distended, normal bowel sounds - Integumentary Integumentary: Present: clear, warm, dry - Neurologic Neurologic: CNII-XII intact, moves all extremities HEART Score - HEART Score Troponin: Troponin T < 0.010 ng/mL (0.00-0.029) 11/23/20 16:56 Results - Labs CBC & Chem 7: 11/24/20 07:33 11/24/20 07:33 Labs: Laboratory Last Values WBC 6.6 K/mm3 (4.5-11.0) 11/24/20 07:33 RBC 4.13 M/mm3 (3.65-5.03) 11/24/20 07:33 Hgb 13.9 gm/dl (11.8-15.2) 11/24/20 07:33 Hct 38.4 % (35.5-45.6) 11/24/20 07:33 MCV 93 fl (84-94) 11/24/20 07:33 MCH 34 pg (28-32) H 11/24/20 07:33 MCHC 36 % (32-34) H 11/24/20 07:33 RDW 13.5 % (13.2-15.2) 11/24/20 07:33 Plt Count 307 K/mm3 (140-440) 11/24/20 07:33 Lymph % (Auto) 8.1 % (13.4-35.0) L 11/24/20 07:33 [place] % (Auto) 7.8 % (0.0-7.3) H 11/24/20 07:33 Eos % (Auto) 0.0 % (0.0-4.3) 11/24/20 07:33 Baso % (Auto) 0.1 % (0.0-1.8) 11/24/20 07:33 Lymph # (Auto) 0.5 K/mm3 (1.2-5.4) L 11/24/20 07:33 [place] # (Auto) 0.5 K/mm3 (0.0-0.8) 11/24/20 07:33 Eos # (Auto) 0.0 K/mm3 (0.0-0.4) 11/24/20 07:33 Baso # (Auto) 0.0 K/mm3 (0.0-0.1) 11/24/20 07:33 Seg Neutrophils % 84.0 % (40.0-70.0) H 11/24/20 07:33 Seg Neutrophils # 5.5 K/mm3 (1.8-7.7) 11/24/20 07:33 PT 14.3 Sec. (12.2-14.9) 11/23/20 16:56 INR 1.13 (0.87-1.13) 11/23/20 16:56 Sodium 141 mmol/L (137-145) 11/24/20 07:33 Potassium 5.0 mmol/L (3.6-5.0) D 11/24/20 07:33 Chloride 107.8 mmol/L (98-107) H 11/24/20 07:33 Carbon Dioxide 24 mmol/L (22-30) 11/24/20 07:33 Anion Gap 14 mmol/L 11/24/20 07:33 BUN 19 mg/dL (9-20) 11/24/20 07:33 Creatinine 1.0 mg/dL (0.8-1.3) 11/24/20 07:33 Estimated GFR > 60 ml/min 11/24/20 07:33 BUN/Creatinine Ratio 19 % 11/24/20 07:33 Glucose 100 mg/dL (75-100) 11/24/20 07:33 POC Glucose 243 mg/dL (70-105) H 11/24/20 00:39 Lactic Acid 1.90 mmol/L (0.7-2.0) 11/23/20 16:56 Calcium 7.9 mg/dL (8.4-10.2) L 11/24/20 07:33 Magnesium 2.10 mg/dL (1.7-2.3) 11/23/20 16:56 Total Bilirubin 1.60 mg/dL (0.1-1.2) H 11/23/20 16:56 Direct Bilirubin 0.4 mg/dL (0-0.2) H 11/23/20 16:56 Indirect Bilirubin 1.2 mg/dL 11/23/20 16:56 AST 17 units/L (5-40) 11/23/20 16:56 ALT 13 units/L (7-56) 11/23/20 16:56 Alkaline Phosphatase 71 units/L (35-129) 11/23/20 16:56 Total Creatine Kinase 86 units/L (55-170) 11/23/20 16:56 Troponin T < 0.010 ng/mL (0.00-0.029) 11/23/20 16:56 Total Protein 7.6 g/dL (6.3-8.2) 11/23/20 16:56 Albumin 3.8 g/dL (3.9-5) L 11/23/20 16:56 Albumin/Globulin Ratio 1.0 % 11/23/20 16:56 Lipase 18 units/L (13-60) 11/23/20 16:56 Urine Color Krist[place] (Yellow) 11/24/20 Unknown Urine Turbidity Clear (Clear) 11/24/20 Unknown Urine pH 5.0 (5.0-7.0) 11/24/20 Unknown Ur Specific [place] 1.056 (1.003-1.030) H 11/24/20 Unknown Urine Protein 100 mg/dl mg/dL (Negative) 11/24/20 Unknown Urine Glucose (UA) Neg mg/dL (Negative) 11/24/20 Unknown Urine Ketones Neg mg/dL (Negative) 11/24/20 Unknown Urine Blood Sm (Negative) 11/24/20 Unknown Urine Nitrite Neg (Negative) 11/24/20 Unknown Urine Bilirubin Neg (Negative) 11/24/20 Unknown Urine Urobilinogen < 2.0 mg/dL (<2.0) 11/24/20 Unknown Ur Leukocyte Esterase Neg (Negative) 11/24/20 Unknown Urine WBC (Auto) 3.0 /HPF (0.0-6.0) 11/24/20 Unknown Urine RBC (Auto) 5.0 /HPF (0.0-6.0) 11/24/20 Unknown Urine Bacteria (Auto) 1+ /HPF (Negative) 11/24/20 Unknown Urine Mucus Few /HPF 11/24/20 Unknown Urine Opiates Screen Presumptive negative 11/24/20 Unknown Urine Methadone Screen Presumptive negative 11/24/20 Unknown Ur Barbiturates Screen Presumptive negative 11/24/20 Unknown Ur Phencyclidine Scrn Presumptive negative 11/24/20 Unknown Ur Amphetamines Screen Presumptive negative 11/24/20 Unknown U Benzodiazepines Scrn Presumptive positive 11/24/20 Unknown Urine Cocaine Screen Presumptive negative 11/24/20 Unknown U Marijuana (THC) Screen Presumptive positive 11/24/20 Unknown Drugs of Abuse Note Disclamer 11/24/20 Unknown Blood Type A POSITIVE 11/23/20 19:09 Antibody Screen Negative 11/23/20 19:09 [place]/IV: Voiding Method Indwelling Catheter Active Medications - Current Medications Current Medications: Generic Name Dose Route Start Last Admin Trade Name Freq PRN Reason Stop Dose Admin Albuterol 2.5 mg 11/23/20 18:58 Albuterol 2.5 Mg/3 Ml Nebu IH Q3HRT PRN Shortness Of Breath Hydromorphone HCl 0.5 mg 11/23/20 23:23 11/23/20 23:27 Hydromorphone 1 Mg/1 Ml Inj IV 11/24/20 23:22 0.5 mg Q10MIN PRN Administration Pain , Severe (7-10) Hydromorphone HCl 0.25 mg 11/23/20 23:23 Hydromorphone 1 Mg/1 Ml Inj IV 11/24/20 23:22 Q10MIN PRN Pain, Moderate (4-6) Piperacillin Sod/Tazobactam Sod 4.5 gm in 100 mls @ 200 mls/hr 11/24/20 03:00 11/24/20 05:25 Zosyn/Ns 4.5gm/100ml IV Infused Q8H MATEUSZ Infusion Protocol Morphine Sulfate 2 mg 11/23/20 18:58 Morphine 2 Mg/1 Ml Inj IV Q4H PRN Pain, Moderate (4-6) Pantoprazole Sodium 40 mg 11/24/20 10:00 Pantoprazole 40 Mg Inj IV BID MATEUSZ Sodium Chloride 10 ml 11/23/20 22:00 11/23/20 23:09 Sodium Chloride 0.9% 10 Ml Flush Syringe IV 10 ml BID MATEUSZ Administration Sodium Chloride 10 ml 11/23/20 18:58 Sodium Chloride 0.9% 10 Ml Flush Syringe IV PRN PRN LINE FLUSH
[2020-11-24] MEDS: PANTOPRAZOLE 40 MG INJ IV SCH ×2 (11:00→21:57)
--- NOTE | 2020-11-24 12:08 | Electrocardiograph Report ---
[facility] Test Date: 2020-11-23 Test Time: 16:41:42 Pat Name: NEELIMA ALVARES Department: Room: B319 1 Gender: M Training Representative: JASON : 1965 Requested By: SARAH PANTOJA Order Number: [id number] Reading MD: Xochitl Earl Measurements Intervals [place] Rate: 117 P: 74 MA: 140 QRS: -75 QRSD: 82 T: 79 QT: 357 QTc: 499 Interpretive Statements Sinus tachycardia Probable left atrial enlargement Left anterior fascicular block Possible anteroseptal infarct, old No previous ECG available for comparison Electronically Signed On 11-24-2020 12:08:01 EDT by Xochitl Earl
--- NOTE | 2020-11-24 13:30 | Post Anesthesia Evaluation ---
- Post Anesthesia Evaluation Patient Participated: Yes Airway Patent: Yes Stable Respiratory Function: Yes Nausea/Vomiting: No Temp > 96.8F: No Pain Manageable: Yes Adequeate Hydration: Yes Anesthesia Complications: No Block Receding Appropriately: Not Applicable Patient on Ventilator: No
[2020-11-24] MEDS: HYDROmorphone 1 MG/1 ML INJ IV PRN (17:45)
--- NOTE | 2020-11-24 18:27 | Progress Note ---
Assessment and Plan - Patient Problems (1) Perforated abdominal viscus Current Visit: Yes Status: Acute Plan to address problem: 1) Bolus with LR 2) Ambulate in halls 3) CBC and BMP in the am 4) Prophylactic SQ Heparin 5) Continue NG 6) Continue lopez to closely monitor UOP. Subjective Date of service: 11/24/20 Patient Reports: Positive: no new complaints, feels better, pain is less, no flatus, no bowel movement Objective Vital Signs - 12hr 11/24/20 11/24/20 11/24/20 07:23 11:22 16:29 Temperature 99.5 F 100.3 F H 99.6 F Pulse Rate 114 H 118 H 131 H Respiratory 18 18 18 Rate Blood Pressure 111/67 125/85 144/87 O2 Sat by Pulse 97 97 98 Oximetry - General physical appearance no distress - Abdomen soft, bowel sounds hypoactive (Appropriately TTP.) - Labs 11/24/20 07:33 11/24/20 07:33 Diabetes panel 11/24/20 Range/Units 07:33 Sodium 141 (137-145) mmol/L Potassium 5.0 D (3.6-5.0) mmol/L Chloride 107.8 H (98-107) mmol/L Carbon Dioxide 24 (22-30) mmol/L BUN 19 (9-20) mg/dL Creatinine 1.0 (0.8-1.3) mg/dL Glucose 100 (75-100) mg/dL Calcium 7.9 L (8.4-10.2) mg/dL Calcium panel 11/24/20 Range/Units 07:33 Calcium 7.9 L (8.4-10.2) mg/dL Pituitary panel 11/24/20 Range/Units 07:33 Sodium 141 (137-145) mmol/L Potassium 5.0 D (3.6-5.0) mmol/L Chloride 107.8 H (98-107) mmol/L Carbon Dioxide 24 (22-30) mmol/L BUN 19 (9-20) mg/dL Creatinine 1.0 (0.8-1.3) mg/dL Glucose 100 (75-100) mg/dL Calcium 7.9 L (8.4-10.2) mg/dL Adrenal panel 11/24/20 Range/Units 07:33 Sodium 141 (137-145) mmol/L Potassium 5.0 D (3.6-5.0) mmol/L Chloride 107.8 H (98-107) mmol/L Carbon Dioxide 24 (22-30) mmol/L BUN 19 (9-20) mg/dL Creatinine 1.0 (0.8-1.3) mg/dL Glucose 100 (75-100) mg/dL Calcium 7.9 L (8.4-10.2) mg/dL - Imaging Additional Studies: Recorded UOP 130 ml.
[2020-11-24] MEDS ORDERED: SODIUM HYPOCHLORITE, DAKIN'S FULL STRENGTH (0.5%) 473 ML TOPICAL SOLN TP PRN (18:41)
[2020-11-24] MEDS: MORPHINE 2 MG/1 ML INJ IV PRN (21:43)
[2020-11-24] MEDS: HEPARIN 5,000 UNIT/1 ML VIAL SUB-Q SCH (21:57)
[2020-11-24] MEDS ORDERED: LACTATED RINGERS 1,000 ML IV ONE (22:00)
[2020-11-24] MEDS: LACTATED RINGERS 1,000 ML IV SCH (23:42)
[2020-11-25] MEDS: PIPERACIL/TAZOBACTA 4.5/NS 100 4.5 GM/100 ML VIAL IV SCH ×3 (02:51→21:39)
[2020-11-25] MEDS: MORPHINE 2 MG/1 ML INJ IV PRN ×2 (02:53→21:49)
[2020-11-25 04:25] LABS: Basophils # (Auto) 0.1 K/mm3 (0.0-0.1); Basophils % (Auto) 0.7 % (0.0-1.8); Eosinophils % (Auto) 0.1 % (0.0-4.3); Hematocrit 34.9 % (35.5-45.6); Hemoglobin 12.5 gm/dl (11.8-15.2); Lymphocytes # (Auto) 0.9 K/mm3 (1.2-5.4); Lymphocytes % (Auto) 7.8 % (13.4-35.0); Mean Corpuscular HGB Conc 36 % (32-34); Mean Corpuscular Volume 94 fl (84-94); Monocytes # (Auto) 0.6 K/mm3 (0.0-0.8); Monocytes % (Auto) 5.6 % (0.0-7.3); Platelet Count 282 K/mm3 (140-440); Red Blood Count 3.72 M/mm3 (3.65-5.03); Red Cell Distribution Width 13.2 % (13.2-15.2)
[2020-11-25 04:45] LABS: BUN/Creatinine Ratio 24; Blood Urea Nitrogen 19 mg/dL (9-20); Hemolysis Index 7
--- NOTE | 2020-11-25 09:20 | Progress Note ---
Assessment and Plan Assessment and plan: 55 yo male with several days of progressively severe upper abdominal pain associated with nausea. Acute peritonitis Perforated abdominal viscus Nicotine dependence 11/24/2020. Patient is POD #1 for exploratory laparotomy and oversewing of perforated duodenal ulcer. Continue NG decompression for several days per surgery. Continue IV antibiotics with Zosyn. Continue IV Protonix 11/25/2020. Patient is s/p exploratory laparotomy and oversewing of perforated duodenal ulcer. Continue NG decompression per surgery recommendations. Continue IV antibiotics and IV Protonix. History Interval history: No new issues overnight. Hospitalist Physical - Constitutional Vitals: Temp Pulse Resp BP Pulse Ox 99.5 F 118 H 20 151/93 95 11/25/20 07:26 11/25/20 07:26 11/25/20 07:26 11/25/20 07:26 11/25/20 07:26 General appearance: Present: no acute distress - EENT Eyes: Present: PERRL, EOM intact ENT: hearing intact, clear oral mucosa, dentition normal - Neck Neck: Present: supple, normal ROM - Respiratory Respiratory effort: normal Respiratory: bilateral: CTA - Cardiovascular Rhythm: regular Heart Sounds: Present: S1 & S2. Absent: gallop, rub - Extremities Extremities: no ischemia, No edema, Full ROM - Abdominal General gastrointestinal: soft, non-tender, non-distended, normal bowel sounds - Integumentary Integumentary: Present: clear, warm, dry - Neurologic Neurologic: CNII-XII intact, moves all extremities HEART Score - HEART Score Troponin: Troponin T < 0.010 ng/mL (0.00-0.029) 11/23/20 16:56 Results - Labs CBC & Chem 7: 11/25/20 04:04 11/25/20 04:04 Labs: Laboratory Last Values WBC 11.1 K/mm3 (4.5-11.0) H 11/25/20 04:04 RBC 3.72 M/mm3 (3.65-5.03) 11/25/20 04:04 Hgb 12.5 gm/dl (11.8-15.2) 11/25/20 04:04 Hct 34.9 % (35.5-45.6) L 11/25/20 04:04 MCV 94 fl (84-94) 11/25/20 04:04 MCH 33 pg (28-32) H 11/25/20 04:04 MCHC 36 % (32-34) H 11/25/20 04:04 RDW 13.2 % (13.2-15.2) 11/25/20 04:04 Plt Count 282 K/mm3 (140-440) 11/25/20 04:04 Lymph % (Auto) 7.8 % (13.4-35.0) L 11/25/20 04:04 [place] % (Auto) 5.6 % (0.0-7.3) 11/25/20 04:04 Eos % (Auto) 0.1 % (0.0-4.3) 11/25/20 04:04 Baso % (Auto) 0.7 % (0.0-1.8) 11/25/20 04:04 Lymph # (Auto) 0.9 K/mm3 (1.2-5.4) L 11/25/20 04:04 [place] # (Auto) 0.6 K/mm3 (0.0-0.8) 11/25/20 04:04 Eos # (Auto) 0.0 K/mm3 (0.0-0.4) 11/25/20 04:04 Baso # (Auto) 0.1 K/mm3 (0.0-0.1) 11/25/20 04:04 Seg Neutrophils % 85.8 % (40.0-70.0) H 11/25/20 04:04 Seg Neutrophils # 9.5 K/mm3 (1.8-7.7) H 11/25/20 04:04 PT 14.3 Sec. (12.2-14.9) 11/23/20 16:56 INR 1.13 (0.87-1.13) 11/23/20 16:56 Sodium 142 mmol/L (137-145) 11/25/20 04:04 Potassium 3.9 mmol/L (3.6-5.0) D 11/25/20 04:04 Chloride 105.6 mmol/L (98-107) 11/25/20 04:04 Carbon Dioxide 27 mmol/L (22-30) 11/25/20 04:04 Anion Gap 13 mmol/L 11/25/20 04:04 BUN 19 mg/dL (9-20) 11/25/20 04:04 Creatinine 0.8 mg/dL (0.8-1.3) 11/25/20 04:04 Estimated GFR > 60 ml/min 11/25/20 04:04 BUN/Creatinine Ratio 24 % 11/25/20 04:04 Glucose 172 mg/dL (75-100) H 11/25/20 04:04 POC Glucose 176 mg/dL (70-105) H 11/25/20 05:42 Lactic Acid 1.90 mmol/L (0.7-2.0) 11/23/20 16:56 Calcium 8.0 mg/dL (8.4-10.2) L 11/25/20 04:04 Magnesium 2.10 mg/dL (1.7-2.3) 11/23/20 16:56 Total Bilirubin 1.60 mg/dL (0.1-1.2) H 11/23/20 16:56 Direct Bilirubin 0.4 mg/dL (0-0.2) H 11/23/20 16:56 Indirect Bilirubin 1.2 mg/dL 11/23/20 16:56 AST 17 units/L (5-40) 11/23/20 16:56 ALT 13 units/L (7-56) 11/23/20 16:56 Alkaline Phosphatase 71 units/L (35-129) 11/23/20 16:56 Total Creatine Kinase 86 units/L (55-170) 11/23/20 16:56 Troponin T < 0.010 ng/mL (0.00-0.029) 11/23/20 16:56 Total Protein 7.6 g/dL (6.3-8.2) 11/23/20 16:56 Albumin 3.8 g/dL (3.9-5) L 11/23/20 16:56 Albumin/Globulin Ratio 1.0 % 11/23/20 16:56 Lipase 18 units/L (13-60) 11/23/20 16:56 Urine Color Kristina (Yellow) 11/24/20 Unknown Urine Turbidity Clear (Clear) 11/24/20 Unknown Urine pH 5.0 (5.0-7.0) 11/24/20 Unknown Ur Specific [place] 1.056 (1.003-1.030) H 11/24/20 Unknown Urine Protein 100 mg/dl mg/dL (Negative) 11/24/20 Unknown Urine Glucose (UA) Neg mg/dL (Negative) 11/24/20 Unknown Urine Ketones Neg mg/dL (Negative) 11/24/20 Unknown Urine Blood Sm (Negative) 11/24/20 Unknown Urine Nitrite Neg (Negative) 11/24/20 Unknown Urine Bilirubin Neg (Negative) 11/24/20 Unknown Urine Urobilinogen < 2.0 mg/dL (<2.0) 11/24/20 Unknown Ur Leukocyte Esterase Neg (Negative) 11/24/20 Unknown Urine WBC (Auto) 3.0 /HPF (0.0-6.0) 11/24/20 Unknown Urine RBC (Auto) 5.0 /HPF (0.0-6.0) 11/24/20 Unknown Urine Bacteria (Auto) 1+ /HPF (Negative) 11/24/20 Unknown Urine Mucus Few /HPF 11/24/20 Unknown Urine Opiates Screen Presumptive negative 11/24/20 Unknown Urine Methadone Screen Presumptive negative 11/24/20 Unknown Ur Barbiturates Screen Presumptive negative 11/24/20 Unknown Ur Phencyclidine Scrn Presumptive negative 11/24/20 Unknown Ur Amphetamines Screen Presumptive negative 11/24/20 Unknown U Benzodiazepines Scrn Presumptive positive 11/24/20 Unknown Urine Cocaine Screen Presumptive negative 11/24/20 Unknown U Marijuana (THC) Screen Presumptive positive 11/24/20 Unknown Drugs of Abuse Note Disclamer 11/24/20 Unknown Blood Type A POSITIVE 11/23/20 19:09 Antibody Screen Negative 11/23/20 19:09 Microbiology: Microbiology 11/23/20 Unknown Abdomen Surgical Culture - Preliminary Gustafson/IV: Voiding Method Indwelling Catheter Active Medications - Current Medications Current Medications: Generic Name Dose Route Start Last Admin Trade Name Freq PRN Reason Stop Dose Admin Albuterol 2.5 mg 11/23/20 18:58 Albuterol 2.5 Mg/3 Ml Nebu IH Q3HRT PRN Shortness Of Breath Heparin Sodium (Porcine) 5,000 unit 11/24/20 22:00 11/24/20 21:57 Heparin 5,000 Unit/1 Ml Vial SUB-Q 5,000 unit Q12HR MATEUSZ Administration Piperacillin Sod/Tazobactam Sod 4.5 gm in 100 mls @ 200 mls/hr 11/24/20 03:00 11/25/20 02:51 Zosyn/Ns 4.5gm/100ml IV 200 mls/hr Q8H MATEUSZ Administration Protocol Lactated Ringer's 1,000 mls @ 75 mls/hr 11/24/20 21:45 11/24/20 23:42 Lactated Ringers IV 75 mls/hr DIRECT MATEUSZ Administration Morphine Sulfate 2 mg 11/23/20 18:58 11/25/20 02:53 Morphine 2 Mg/1 Ml Inj IV 2 mg Q4H PRN Administration Pain, Moderate (4-6) Pantoprazole Sodium 40 mg 11/24/20 10:00 11/24/20 21:57 Pantoprazole 40 Mg Inj IV 40 mg BID MATEUSZ Administration Sodium Chloride 10 ml 11/23/20 22:00 11/24/20 22:03 Sodium Chloride 0.9% 10 Ml Flush Syringe IV 10 ml BID MATEUSZ Administration Sodium Chloride 10 ml 11/23/20 18:58 Sodium Chloride 0.9% 10 Ml Flush Syringe IV PRN PRN LINE FLUSH Sodium Hypochlorite 1 applic 11/24/20 18:41 Sodium Hypochlorite, Dakin's Full Strength (0.5%) 473 Ml Topical Soln TP Q12H PRN Wound Care
[2020-11-25] MEDS: PANTOPRAZOLE 40 MG INJ IV SCH ×2 (09:46→21:40)
[2020-11-25] MEDS: HEPARIN 5,000 UNIT/1 ML VIAL SUB-Q SCH ×2 (09:54→21:39)
--- NOTE | 2020-11-25 11:20 | Progress Note ---
Assessment and Plan POD#2 s/p repair and omental patch of perforated duodenal ulcer. Afebrile, stable with tachycardia, may be due to SIRS. Will d/c lopez since urine output has picked up but will continue to record output. Keep NGT to suction. contiue abx, ppi, and dvt prophylaxis check labs in am. Subjective Date of service: 11/25/20 Patient Reports: Positive: still having pain, pain is less Narrative: No acute events overnight. Pt has had increase in urine output. He says his pain is a little better compared to yesterday. He complains of a sore throat and asks if it is ok for him to walk the halls. Objective Vital Signs - 12hr 11/25/20 11/25/20 04:55 07:26 Temperature 99.4 F 99.5 F Pulse Rate 117 H 118 H Respiratory 18 20 Rate Blood Pressure 146/80 151/93 O2 Sat by Pulse 94 95 Oximetry - General physical appearance well developed, well nourished, no distress, moderate pain - Abdomen soft, not distended, other (appropriately tender to palpation. midline dressing changed. small amount of sero-sanguinous drainage. NGT bilious) - Labs 11/25/20 04:04 11/25/20 04:04 Diabetes panel 11/25/20 Range/Units 04:04 Sodium 142 (137-145) mmol/L Potassium 3.9 D (3.6-5.0) mmol/L Chloride 105.6 (98-107) mmol/L Carbon Dioxide 27 (22-30) mmol/L BUN 19 (9-20) mg/dL Creatinine 0.8 (0.8-1.3) mg/dL Glucose 172 H (75-100) mg/dL Calcium 8.0 L (8.4-10.2) mg/dL Calcium panel 11/25/20 Range/Units 04:04 Calcium 8.0 L (8.4-10.2) mg/dL Pituitary panel 11/25/20 Range/Units 04:04 Sodium 142 (137-145) mmol/L Potassium 3.9 D (3.6-5.0) mmol/L Chloride 105.6 (98-107) mmol/L Carbon Dioxide 27 (22-30) mmol/L BUN 19 (9-20) mg/dL Creatinine 0.8 (0.8-1.3) mg/dL Glucose 172 H (75-100) mg/dL Calcium 8.0 L (8.4-10.2) mg/dL Adrenal panel 11/25/20 Range/Units 04:04 Sodium 142 (137-145) mmol/L Potassium 3.9 D (3.6-5.0) mmol/L Chloride 105.6 (98-107) mmol/L Carbon Dioxide 27 (22-30) mmol/L BUN 19 (9-20) mg/dL Creatinine 0.8 (0.8-1.3) mg/dL Glucose 172 H (75-100) mg/dL Calcium 8.0 L (8.4-10.2) mg/dL
[2020-11-25] MEDS: LACTATED RINGERS 1,000 ML IV SCH (11:28)
[2020-11-25] MEDS ORDERED: PHENOL 1.4% 177 ML BOTTLE MM PRN (12:00)
[2020-11-25] MEDS ORDERED: SODIUM CHLORIDE 0.9% 500 ML 500 ML IV ONE (12:00)
[2020-11-26] MEDS: hydrALAZINE 20 MG/1 ML INJ IV PRN ×4 (01:07→23:55)
[2020-11-26] MEDS: PIPERACIL/TAZOBACTA 4.5/NS 100 4.5 GM/100 ML VIAL IV SCH ×3 (04:10→20:36)
[2020-11-26] MEDS: LACTATED RINGERS 1,000 ML IV SCH ×2 (05:00→19:50)
[2020-11-26 06:22] LABS: Basophils % (Auto) 0.4 % (0.0-1.8); Eosinophils % (Auto) 0.1 % (0.0-4.3); Hematocrit 33.4 % (35.5-45.6); Hemoglobin 11.7 gm/dl (11.8-15.2); Lymphocytes # (Auto) 0.8 K/mm3 (1.2-5.4); Lymphocytes % (Auto) 8.8 % (13.4-35.0); Mean Corpuscular HGB Conc 35 % (32-34); Mean Corpuscular Volume 95 fl (84-94); Monocytes # (Auto) 0.6 K/mm3 (0.0-0.8); Monocytes % (Auto) 5.8 % (0.0-7.3); Platelet Count 308 K/mm3 (140-440); Red Blood Count 3.52 M/mm3 (3.65-5.03); Red Cell Distribution Width 13.4 % (13.2-15.2)
[2020-11-26 06:37] LABS: Alanine Aminotransferase 13 units/L (7-56); Albumin 2.4 g/dL (3.9-5); Blood Urea Nitrogen 18 mg/dL (9-20); Hemolysis Index 7
[2020-11-26 06:48] LABS: BUN/Creatinine Ratio 26
--- NOTE | 2020-11-26 08:06 | Progress Note ---
Assessment and Plan Assessment and plan: 55 yo male with several days of progressively severe upper abdominal pain associated with nausea. Acute peritonitis Perforated abdominal viscus Nicotine dependence 11/24/2020. Patient is POD #1 for exploratory laparotomy and oversewing of perforated duodenal ulcer. Continue NG decompression for several days per surgery. Continue IV antibiotics with Zosyn. Continue IV Protonix 11/25/2020. Patient is s/p exploratory laparotomy and oversewing of perforated duodenal ulcer. Continue NG decompression per surgery recommendations. Continue IV antibiotics and IV Protonix. 11/26/2020. Patient is s/p repair and omental patch of perforated duodenal ulcer. Continue NGT to suction per surgery. Continue IV antibiotics and PPI. History Interval history: No new issues overnight. Hospitalist Physical - Constitutional Vitals: Temp Pulse Resp BP Pulse Ox 99.6 F 105 H 17 152/90 96 11/26/20 06:03 11/26/20 06:03 11/26/20 06:03 11/26/20 06:03 11/26/20 06:03 General appearance: Present: no acute distress - EENT Eyes: Present: PERRL, EOM intact ENT: hearing intact, clear oral mucosa, dentition normal - Neck Neck: Present: supple, normal ROM - Respiratory Respiratory effort: normal Respiratory: bilateral: CTA - Cardiovascular Rhythm: regular Heart Sounds: Present: S1 & S2. Absent: gallop, rub - Extremities Extremities: no ischemia, No edema, Full ROM - Abdominal General gastrointestinal: soft, non-tender, non-distended, normal bowel sounds - Integumentary Integumentary: Present: clear, warm, dry - Neurologic Neurologic: CNII-XII intact, moves all extremities HEART Score - HEART Score Troponin: Troponin T < 0.010 ng/mL (0.00-0.029) 11/23/20 16:56 Results - Labs CBC & Chem 7: 11/26/20 06:01 11/26/20 06:01 Labs: Laboratory Last Values WBC 9.6 K/mm3 (4.5-11.0) 11/26/20 06:01 RBC 3.52 M/mm3 (3.65-5.03) L 11/26/20 06:01 Hgb 11.7 gm/dl (11.8-15.2) L 11/26/20 06:01 Hct 33.4 % (35.5-45.6) L 11/26/20 06:01 MCV 95 fl (84-94) H 11/26/20 06:01 MCH 33 pg (28-32) H 11/26/20 06:01 MCHC 35 % (32-34) H 11/26/20 06:01 RDW 13.4 % (13.2-15.2) 11/26/20 06:01 Plt Count 308 K/mm3 (140-440) 11/26/20 06:01 Lymph % (Auto) 8.8 % (13.4-35.0) L 11/26/20 06:01 [place] % (Auto) 5.8 % (0.0-7.3) 11/26/20 06:01 Eos % (Auto) 0.1 % (0.0-4.3) 11/26/20 06:01 Baso % (Auto) 0.4 % (0.0-1.8) 11/26/20 06:01 Lymph # (Auto) 0.8 K/mm3 (1.2-5.4) L 11/26/20 06:01 [place] # (Auto) 0.6 K/mm3 (0.0-0.8) 11/26/20 06:01 Eos # (Auto) 0.0 K/mm3 (0.0-0.4) 11/26/20 06:01 Baso # (Auto) 0.0 K/mm3 (0.0-0.1) 11/26/20 06:01 Seg Neutrophils % 84.9 % (40.0-70.0) H 11/26/20 06:01 Seg Neutrophils # 8.1 K/mm3 (1.8-7.7) H 11/26/20 06:01 PT 14.3 Sec. (12.2-14.9) 11/23/20 16:56 INR 1.13 (0.87-1.13) 11/23/20 16:56 Sodium 145 mmol/L (137-145) 11/26/20 06:01 Potassium 3.6 mmol/L (3.6-5.0) 11/26/20 06:01 Chloride 107.9 mmol/L (98-107) H 11/26/20 06:01 Carbon Dioxide 26 mmol/L (22-30) 11/26/20 06:01 Anion Gap 15 mmol/L 11/26/20 06:01 BUN 18 mg/dL (9-20) 11/26/20 06:01 Creatinine 0.7 mg/dL (0.8-1.3) L 11/26/20 06:01 Estimated GFR > 60 ml/min 11/26/20 06:01 BUN/Creatinine Ratio 26 % 11/26/20 06:01 Glucose 146 mg/dL (75-100) H 11/26/20 06:01 POC Glucose 136 mg/dL (70-105) H 11/25/20 21:36 Lactic Acid 1.90 mmol/L (0.7-2.0) 11/23/20 16:56 Calcium 8.0 mg/dL (8.4-10.2) L 11/26/20 06:01 Magnesium 2.10 mg/dL (1.7-2.3) 11/23/20 16:56 Total Bilirubin 1.40 mg/dL (0.1-1.2) H 11/26/20 06:01 Direct Bilirubin 0.4 mg/dL (0-0.2) H 11/23/20 16:56 Indirect Bilirubin 1.2 mg/dL 11/23/20 16:56 AST 18 units/L (5-40) 11/26/20 06:01 ALT 13 units/L (7-56) 11/26/20 06:01 Alkaline Phosphatase 57 units/L (35-129) 11/26/20 06:01 Total Creatine Kinase 86 units/L (55-170) 11/23/20 16:56 Troponin T < 0.010 ng/mL (0.00-0.029) 11/23/20 16:56 Total Protein 6.1 g/dL (6.3-8.2) L 11/26/20 06:01 Albumin 2.4 g/dL (3.9-5) L 11/26/20 06:01 Albumin/Globulin Ratio 0.6 % 11/26/20 06:01 Lipase 18 units/L (13-60) 11/23/20 16:56 Urine Color Kristina (Yellow) 11/24/20 Unknown Urine Turbidity Clear (Clear) 11/24/20 Unknown Urine pH 5.0 (5.0-7.0) 11/24/20 Unknown Ur Specific [place] 1.056 (1.003-1.030) H 11/24/20 Unknown Urine Protein 100 mg/dl mg/dL (Negative) 11/24/20 Unknown Urine Glucose (UA) Neg mg/dL (Negative) 11/24/20 Unknown Urine Ketones Neg mg/dL (Negative) 11/24/20 Unknown Urine Blood Sm (Negative) 11/24/20 Unknown Urine Nitrite Neg (Negative) 11/24/20 Unknown Urine Bilirubin Neg (Negative) 11/24/20 Unknown Urine Urobilinogen < 2.0 mg/dL (<2.0) 11/24/20 Unknown Ur Leukocyte Esterase Neg (Negative) 11/24/20 Unknown Urine WBC (Auto) 3.0 /HPF (0.0-6.0) 11/24/20 Unknown Urine RBC (Auto) 5.0 /HPF (0.0-6.0) 11/24/20 Unknown Urine Bacteria (Auto) 1+ /HPF (Negative) 11/24/20 Unknown Urine Mucus Few /HPF 11/24/20 Unknown Urine Opiates Screen Presumptive negative 11/24/20 Unknown Urine Methadone Screen Presumptive negative 11/24/20 Unknown Ur Barbiturates Screen Presumptive negative 11/24/20 Unknown Ur Phencyclidine Scrn Presumptive negative 11/24/20 Unknown Ur Amphetamines Screen Presumptive negative 11/24/20 Unknown U Benzodiazepines Scrn Presumptive positive 11/24/20 Unknown Urine Cocaine Screen Presumptive negative 11/24/20 Unknown U Marijuana (THC) Screen Presumptive positive 11/24/20 Unknown Drugs of Abuse Note Disclamer 11/24/20 Unknown Blood Type A POSITIVE 11/23/20 19:09 Antibody Screen Negative 11/23/20 19:09 Microbiology: Microbiology 11/23/20 Unknown Abdomen Anaerobic Culture - Preliminary 11/23/20 Unknown Abdomen Surgical Culture - Preliminary Gustafson/IV: Voiding Method Urinal Active Medications - Current Medications Current Medications: Generic Name Dose Route Start Last Admin Trade Name Freq PRN Reason Stop Dose Admin Albuterol 2.5 mg 11/23/20 18:58 Albuterol 2.5 Mg/3 Ml Nebu IH Q3HRT PRN Shortness Of Breath Heparin Sodium (Porcine) 5,000 unit 11/24/20 22:00 11/25/20 21:39 Heparin 5,000 Unit/1 Ml Vial SUB-Q 5,000 unit Q12HR MATEUSZ Administration Hydralazine HCl 5 mg 11/26/20 00:33 11/26/20 01:07 Hydralazine 20 Mg/1 Ml Inj IV 5 mg Q4H PRN Administration Hypertension Piperacillin Sod/Tazobactam Sod 4.5 gm in 100 mls @ 200 mls/hr 11/24/20 03:00 11/26/20 04:10 Zosyn/Ns 4.5gm/100ml IV 200 mls/hr Q8H MATEUSZ Administration Protocol Lactated Ringer's 1,000 mls @ 75 mls/hr 11/24/20 21:45 11/26/20 05:00 Lactated Ringers IV 75 mls/hr DIRECT MATEUSZ Administration Morphine Sulfate 2 mg 11/23/20 18:58 11/25/20 21:49 Morphine 2 Mg/1 Ml Inj IV 2 mg Q4H PRN Administration Pain, Moderate (4-6) Pantoprazole Sodium 40 mg 11/24/20 10:00 11/25/20 21:40 Pantoprazole 40 Mg Inj IV 40 mg BID MATEUSZ Administration Phenol 1 spray 11/25/20 12:00 11/25/20 17:01 Phenol 1.4% 177 Ml Bottle MM 1 spray PRN PRN Administration Sore Throat Sodium Chloride 10 ml 11/23/20 22:00 11/25/20 21:40 Sodium Chloride 0.9% 10 Ml Flush Syringe IV 10 ml BID MATEUSZ Administration Sodium Chloride 10 ml 11/23/20 18:58 Sodium Chloride 0.9% 10 Ml Flush Syringe IV PRN PRN LINE FLUSH Sodium Hypochlorite 1 applic 11/24/20 18:41 Sodium Hypochlorite, Dakin's Full Strength (0.5%) 473 Ml Topical Soln TP Q12H PRN Wound Care
[2020-11-26] MEDS: PANTOPRAZOLE 40 MG INJ IV SCH ×2 (09:51→21:14)
[2020-11-26] MEDS: HEPARIN 5,000 UNIT/1 ML VIAL SUB-Q SCH ×2 (09:52→21:14)
[2020-11-26] MEDS ORDERED: SODIUM CHLORIDE 0.9% 500 ML 500 ML IV ONE (11:00)
--- NOTE | 2020-11-26 13:12 | Progress Note ---
Assessment and Plan POD#3 s/p repair and omental patch of perforated duodenal ulcer. Afebrile, stable with improving tachycardia, may be due to SIRS. . Keep NGT to suction. contiue abx, ppi, and dvt prophylaxis Subjective Date of service: 11/26/20 Patient Reports: Positive: still having pain, pain is less (no acute events overnight. Pt says his pain is improving compared to yesterday and he is walking around well.) Objective Vital Signs - 12hr 11/26/20 11/26/20 11/26/20 04:53 06:03 07:41 Temperature 99.7 F H 99.6 F 98.6 F Pulse Rate 110 H 105 H 114 H Respiratory 19 17 18 Rate Blood Pressure 179/97 182/101 Blood Pressure 152/90 [Left] O2 Sat by Pulse 94 96 88 Oximetry 11/26/20 11:16 Temperature 99.0 F Pulse Rate 105 H Respiratory 18 Rate Blood Pressure 156/107 Blood Pressure [Left] O2 Sat by Pulse 96 Oximetry - General physical appearance well developed, well nourished, no distress, moderate pain - Respiratory normal expansion, normal respiratory effort - Abdomen soft, not rebound, not guarding, not rigid, other (dressing c/d/i, appropriately tender to palpation) - Labs 11/26/20 06:01 11/26/20 06:01 Diabetes panel 11/26/20 Range/Units 06:01 Sodium 145 (137-145) mmol/L Potassium 3.6 (3.6-5.0) mmol/L Chloride 107.9 H (98-107) mmol/L Carbon Dioxide 26 (22-30) mmol/L BUN 18 (9-20) mg/dL Creatinine 0.7 L (0.8-1.3) mg/dL Glucose 146 H (75-100) mg/dL Calcium 8.0 L (8.4-10.2) mg/dL AST 18 (5-40) units/L ALT 13 (7-56) units/L Alkaline Phosphatase 57 (35-129) units/L Total Protein 6.1 L (6.3-8.2) g/dL Albumin 2.4 L (3.9-5) g/dL Calcium panel 11/26/20 Range/Units 06:01 Calcium 8.0 L (8.4-10.2) mg/dL Albumin 2.4 L (3.9-5) g/dL Pituitary panel 11/26/20 Range/Units 06:01 Sodium 145 (137-145) mmol/L Potassium 3.6 (3.6-5.0) mmol/L Chloride 107.9 H (98-107) mmol/L Carbon Dioxide 26 (22-30) mmol/L BUN 18 (9-20) mg/dL Creatinine 0.7 L (0.8-1.3) mg/dL Glucose 146 H (75-100) mg/dL Calcium 8.0 L (8.4-10.2) mg/dL Adrenal panel 11/26/20 Range/Units 06:01 Sodium 145 (137-145) mmol/L Potassium 3.6 (3.6-5.0) mmol/L Chloride 107.9 H (98-107) mmol/L Carbon Dioxide 26 (22-30) mmol/L BUN 18 (9-20) mg/dL Creatinine 0.7 L (0.8-1.3) mg/dL Glucose 146 H (75-100) mg/dL Calcium 8.0 L (8.4-10.2) mg/dL Total Bilirubin 1.40 H (0.1-1.2) mg/dL AST 18 (5-40) units/L ALT 13 (7-56) units/L Alkaline Phosphatase 57 (35-129) units/L Total Protein 6.1 L (6.3-8.2) g/dL Albumin 2.4 L (3.9-5) g/dL
[2020-11-26] MEDS: MORPHINE 2 MG/1 ML INJ IV PRN ×2 (18:19→23:37)
[2020-11-27] MEDS: PIPERACIL/TAZOBACTA 4.5/NS 100 4.5 GM/100 ML VIAL IV SCH ×3 (04:21→19:32)
[2020-11-27] MEDS: MORPHINE 2 MG/1 ML INJ IV PRN ×3 (04:21→23:18)
[2020-11-27] MEDS: hydrALAZINE 20 MG/1 ML INJ IV PRN ×3 (04:26→23:18)
[2020-11-27 06:54] LABS: Basophils % (Auto) 0.4 % (0.0-1.8); Eosinophils % (Auto) 0.2 % (0.0-4.3); Hematocrit 36.4 % (35.5-45.6); Hemoglobin 12.4 gm/dl (11.8-15.2); Lymphocytes # (Auto) 0.8 K/mm3 (1.2-5.4); Lymphocytes % (Auto) 10.2 % (13.4-35.0); Mean Corpuscular HGB Conc 34 % (32-34); Mean Corpuscular Volume 98 fl (84-94); Monocytes # (Auto) 0.9 K/mm3 (0.0-0.8); Monocytes % (Auto) 11.4 % (0.0-7.3); Platelet Count 337 K/mm3 (140-440); Red Blood Count 3.71 M/mm3 (3.65-5.03); Red Cell Distribution Width 13.1 % (13.2-15.2)
[2020-11-27 07:11] LABS: Blood Urea Nitrogen 15 mg/dL (9-20); Calcium 8.2 mg/dL (8.4-10.2); Hemolysis Index 6
[2020-11-27 07:18] LABS: BUN/Creatinine Ratio 21
--- NOTE | 2020-11-27 08:03 | Progress Note ---
Assessment and Plan Assessment and plan: 55 yo male with several days of progressively severe upper abdominal pain associated with nausea. Acute peritonitis Perforated abdominal viscus Nicotine dependence 11/24/2020. Patient is POD #1 for exploratory laparotomy and oversewing of perforated duodenal ulcer. Continue NG decompression for several days per surgery. Continue IV antibiotics with Zosyn. Continue IV Protonix 11/25/2020. Patient is s/p exploratory laparotomy and oversewing of perforated duodenal ulcer. Continue NG decompression per surgery recommendations. Continue IV antibiotics and IV Protonix. 11/26/2020. Patient is s/p repair and omental patch of perforated duodenal ulcer. Continue NGT to suction per surgery. Continue IV antibiotics and PPI. 11/27/2020. Patient is s/p repair and omental patch of perforated duodenal ulcer. Continue NGT to suction per surgery. Continue IV antibiotics and PPI. History Interval history: No new issues overnight. Hospitalist Physical - Constitutional Vitals: Temp Pulse Resp BP Pulse Ox 98.7 F 122 H 18 166/95 94 11/26/20 23:46 11/27/20 04:26 11/26/20 23:46 11/27/20 04:26 11/26/20 20:50 General appearance: Present: no acute distress - EENT Eyes: Present: PERRL, EOM intact ENT: hearing intact, clear oral mucosa, dentition normal - Neck Neck: Present: supple, normal ROM - Respiratory Respiratory effort: normal Respiratory: bilateral: CTA - Cardiovascular Rhythm: regular Heart Sounds: Present: S1 & S2. Absent: gallop, rub - Extremities Extremities: no ischemia, No edema, Full ROM - Abdominal General gastrointestinal: soft, non-tender, non-distended, normal bowel sounds - Integumentary Integumentary: Present: clear, warm, dry - Neurologic Neurologic: CNII-XII intact, moves all extremities HEART Score - HEART Score Troponin: Troponin T < 0.010 ng/mL (0.00-0.029) 11/23/20 16:56 Results - Labs CBC & Chem 7: 11/27/20 06:40 11/27/20 06:40 Labs: Laboratory Last Values WBC 8.2 K/mm3 (4.5-11.0) 11/27/20 06:40 RBC 3.71 M/mm3 (3.65-5.03) 11/27/20 06:40 Hgb 12.4 gm/dl (11.8-15.2) 11/27/20 06:40 Hct 36.4 % (35.5-45.6) 11/27/20 06:40 MCV 98 fl (84-94) H 11/27/20 06:40 MCH 33 pg (28-32) H 11/27/20 06:40 MCHC 34 % (32-34) 11/27/20 06:40 RDW 13.1 % (13.2-15.2) L 11/27/20 06:40 Plt Count 337 K/mm3 (140-440) 11/27/20 06:40 Lymph % (Auto) 10.2 % (13.4-35.0) L 11/27/20 06:40 [place] % (Auto) 11.4 % (0.0-7.3) H 11/27/20 06:40 Eos % (Auto) 0.2 % (0.0-4.3) 11/27/20 06:40 Baso % (Auto) 0.4 % (0.0-1.8) 11/27/20 06:40 Lymph # (Auto) 0.8 K/mm3 (1.2-5.4) L 11/27/20 06:40 Stark # (Auto) 0.9 K/mm3 (0.0-0.8) H 11/27/20 06:40 Eos # (Auto) 0.0 K/mm3 (0.0-0.4) 11/27/20 06:40 Baso # (Auto) 0.0 K/mm3 (0.0-0.1) 11/27/20 06:40 Seg Neutrophils % 77.8 % (40.0-70.0) H 11/27/20 06:40 Seg Neutrophils # 6.3 K/mm3 (1.8-7.7) 11/27/20 06:40 PT 14.3 Sec. (12.2-14.9) 11/23/20 16:56 INR 1.13 (0.87-1.13) 11/23/20 16:56 Sodium 144 mmol/L (137-145) 11/27/20 06:40 Potassium 3.9 mmol/L (3.6-5.0) 11/27/20 06:40 Chloride 105.5 mmol/L (98-107) 11/27/20 06:40 Carbon Dioxide 25 mmol/L (22-30) 11/27/20 06:40 Anion Gap 17 mmol/L 11/27/20 06:40 BUN 15 mg/dL (9-20) 11/27/20 06:40 Creatinine 0.7 mg/dL (0.8-1.3) L 11/27/20 06:40 Estimated GFR > 60 ml/min 11/27/20 06:40 BUN/Creatinine Ratio 21 % 11/27/20 06:40 Glucose 164 mg/dL (75-100) H 11/27/20 06:40 POC Glucose 167 mg/dL (70-105) H 11/27/20 06:05 Lactic Acid 1.90 mmol/L (0.7-2.0) 11/23/20 16:56 Calcium 8.2 mg/dL (8.4-10.2) L 11/27/20 06:40 Magnesium 2.10 mg/dL (1.7-2.3) 11/23/20 16:56 Total Bilirubin 1.40 mg/dL (0.1-1.2) H 11/26/20 06:01 Direct Bilirubin 0.4 mg/dL (0-0.2) H 11/23/20 16:56 Indirect Bilirubin 1.2 mg/dL 11/23/20 16:56 AST 18 units/L (5-40) 11/26/20 06:01 ALT 13 units/L (7-56) 11/26/20 06:01 Alkaline Phosphatase 57 units/L (35-129) 11/26/20 06:01 Total Creatine Kinase 86 units/L (55-170) 11/23/20 16:56 Troponin T < 0.010 ng/mL (0.00-0.029) 11/23/20 16:56 Total Protein 6.1 g/dL (6.3-8.2) L 11/26/20 06:01 Albumin 2.4 g/dL (3.9-5) L 11/26/20 06:01 Albumin/Globulin Ratio 0.6 % 11/26/20 06:01 Lipase 18 units/L (13-60) 11/23/20 16:56 Urine Color Kristina (Yellow) 11/24/20 Unknown Urine Turbidity Clear (Clear) 11/24/20 Unknown Urine pH 5.0 (5.0-7.0) 11/24/20 Unknown Ur Specific [place] 1.056 (1.003-1.030) H 11/24/20 Unknown Urine Protein 100 mg/dl mg/dL (Negative) 11/24/20 Unknown Urine Glucose (UA) Neg mg/dL (Negative) 11/24/20 Unknown Urine Ketones Neg mg/dL (Negative) 11/24/20 Unknown Urine Blood Sm (Negative) 11/24/20 Unknown Urine Nitrite Neg (Negative) 11/24/20 Unknown Urine Bilirubin Neg (Negative) 11/24/20 Unknown Urine Urobilinogen < 2.0 mg/dL (<2.0) 11/24/20 Unknown Ur Leukocyte Esterase Neg (Negative) 11/24/20 Unknown Urine WBC (Auto) 3.0 /HPF (0.0-6.0) 11/24/20 Unknown Urine RBC (Auto) 5.0 /HPF (0.0-6.0) 11/24/20 Unknown Urine Bacteria (Auto) 1+ /HPF (Negative) 11/24/20 Unknown Urine Mucus Few /HPF 11/24/20 Unknown Urine Opiates Screen Presumptive negative 11/24/20 Unknown Urine Methadone Screen Presumptive negative 11/24/20 Unknown Ur Barbiturates Screen Presumptive negative 11/24/20 Unknown Ur Phencyclidine Scrn Presumptive negative 11/24/20 Unknown Ur Amphetamines Screen Presumptive negative 11/24/20 Unknown U Benzodiazepines Scrn Presumptive positive 11/24/20 Unknown Urine Cocaine Screen Presumptive negative 11/24/20 Unknown U Marijuana (THC) Screen Presumptive positive 11/24/20 Unknown Drugs of Abuse Note Disclamer 11/24/20 Unknown Blood Type A POSITIVE 11/23/20 19:09 Antibody Screen Negative 11/23/20 19:09 Gustafson/IV: Voiding Method Urinal Active Medications - Current Medications Current Medications: Generic Name Dose Route Start Last Admin Trade Name Freq PRN Reason Stop Dose Admin Albuterol 2.5 mg 11/23/20 18:58 Albuterol 2.5 Mg/3 Ml Nebu IH Q3HRT PRN Shortness Of Breath Heparin Sodium (Porcine) 5,000 unit 11/24/20 22:00 11/26/20 21:14 Heparin 5,000 Unit/1 Ml Vial SUB-Q 5,000 unit Q12HR MATEUSZ Administration Hydralazine HCl 5 mg 11/26/20 00:33 11/27/20 04:26 Hydralazine 20 Mg/1 Ml Inj IV 5 mg Q4H PRN Administration Hypertension Piperacillin Sod/Tazobactam Sod 4.5 gm in 100 mls @ 200 mls/hr 11/24/20 03:00 11/27/20 04:21 Zosyn/Ns 4.5gm/100ml IV 200 mls/hr Q8H MATEUSZ Administration Protocol Lactated Ringer's 1,000 mls @ 75 mls/hr 11/24/20 21:45 11/26/20 19:50 Lactated Ringers IV 75 mls/hr DIRECT MATEUSZ Administration Morphine Sulfate 2 mg 11/23/20 18:58 11/27/20 04:21 Morphine 2 Mg/1 Ml Inj IV 2 mg Q4H PRN Administration Pain, Moderate (4-6) Pantoprazole Sodium 40 mg 11/24/20 10:00 11/26/20 21:14 Pantoprazole 40 Mg Inj IV 40 mg BID MATEUSZ Administration Phenol 1 spray 11/25/20 12:00 11/25/20 17:01 Phenol 1.4% 177 Ml Bottle MM 1 spray PRN PRN Administration Sore Throat Sodium Chloride 10 ml 11/23/20 22:00 11/26/20 21:31 Sodium Chloride 0.9% 10 Ml Flush Syringe IV 10 ml BID MATEUSZ Administration Sodium Chloride 10 ml 11/23/20 18:58 Sodium Chloride 0.9% 10 Ml Flush Syringe IV PRN PRN LINE FLUSH Sodium Hypochlorite 1 applic 11/24/20 18:41 Sodium Hypochlorite, Dakin's Full Strength (0.5%) 473 Ml Topical Soln TP Q12H PRN Wound Care
[2020-11-27] MEDS: PANTOPRAZOLE 40 MG INJ IV SCH ×2 (09:23→22:28)
[2020-11-27] MEDS: LACTATED RINGERS 1,000 ML IV SCH ×2 (09:23→22:30)
[2020-11-27] MEDS: HEPARIN 5,000 UNIT/1 ML VIAL SUB-Q SCH ×2 (09:24→22:27)
--- NOTE | 2020-11-27 14:55 | Progress Note ---
Assessment and Plan POD#4 s/p repair and omental patch of perforated duodenal ulcer. Afebrile, stable with improving tachycardia, may be due to SIRS. Keep NGT to suction. continue ambulation contiue abx, ppi, and dvt prophylaxis Subjective Date of service: 11/27/20 Patient Reports: Positive: feels better, pain is less (no acute events. Pt says his pain is less, he is walking the halls regularly. Pt had a bowel movement.) Objective Vital Signs - 12hr 11/27/20 11/27/20 04:26 07:18 Temperature 98.5 F Pulse Rate 122 H 119 H Respiratory 18 Rate Blood Pressure 166/95 172/90 O2 Sat by Pulse 94 Oximetry - General physical appearance well developed, no distress, moderate pain - Respiratory normal expansion, normal respiratory effort - Abdomen soft, not distended, other (incision c/d/i, NGT bilious) - Labs 11/27/20 06:40 11/27/20 06:40 Diabetes panel 11/27/20 Range/Units 06:40 Sodium 144 (137-145) mmol/L Potassium 3.9 (3.6-5.0) mmol/L Chloride 105.5 (98-107) mmol/L Carbon Dioxide 25 (22-30) mmol/L BUN 15 (9-20) mg/dL Creatinine 0.7 L (0.8-1.3) mg/dL Glucose 164 H (75-100) mg/dL Calcium 8.2 L (8.4-10.2) mg/dL Calcium panel 11/27/20 Range/Units 06:40 Calcium 8.2 L (8.4-10.2) mg/dL Pituitary panel 11/27/20 Range/Units 06:40 Sodium 144 (137-145) mmol/L Potassium 3.9 (3.6-5.0) mmol/L Chloride 105.5 (98-107) mmol/L Carbon Dioxide 25 (22-30) mmol/L BUN 15 (9-20) mg/dL Creatinine 0.7 L (0.8-1.3) mg/dL Glucose 164 H (75-100) mg/dL Calcium 8.2 L (8.4-10.2) mg/dL Adrenal panel 11/27/20 Range/Units 06:40 Sodium 144 (137-145) mmol/L Potassium 3.9 (3.6-5.0) mmol/L Chloride 105.5 (98-107) mmol/L Carbon Dioxide 25 (22-30) mmol/L BUN 15 (9-20) mg/dL Creatinine 0.7 L (0.8-1.3) mg/dL Glucose 164 H (75-100) mg/dL Calcium 8.2 L (8.4-10.2) mg/dL
[2020-11-28] MEDS: MORPHINE 2 MG/1 ML INJ IV PRN ×4 (04:03→22:14)
[2020-11-28] MEDS: PIPERACIL/TAZOBACTA 4.5/NS 100 4.5 GM/100 ML VIAL IV SCH ×3 (04:03→18:25)
[2020-11-28] MEDS: hydrALAZINE 20 MG/1 ML INJ IV PRN ×2 (04:04→11:20)
[2020-11-28 07:33] LABS: Basophils # (Auto) 0.1 K/mm3 (0.0-0.1); Basophils % (Auto) 1.1 % (0.0-1.8); Eosinophils % (Auto) 0.4 % (0.0-4.3); Hematocrit 34.7 % (35.5-45.6); Hemoglobin 11.7 gm/dl (11.8-15.2); Lymphocytes # (Auto) 1.1 K/mm3 (1.2-5.4); Lymphocytes % (Auto) 15.8 % (13.4-35.0); Mean Corpuscular HGB Conc 34 % (32-34); Mean Corpuscular Volume 95 fl (84-94); Monocytes % (Auto) 14.4 % (0.0-7.3); Platelet Count 413 K/mm3 (140-440); Red Blood Count 3.65 M/mm3 (3.65-5.03); Red Cell Distribution Width 13.3 % (13.2-15.2)
[2020-11-28 07:54] LABS: Blood Urea Nitrogen 14 mg/dL (9-20); Calcium 7.9 mg/dL (8.4-10.2); Hemolysis Index 24
[2020-11-28] MEDS ORDERED: LACTATED RINGERS 1,000 ML IV ONE (08:00)
[2020-11-28 08:03] LABS: BUN/Creatinine Ratio 23
--- NOTE | 2020-11-28 08:16 | Progress Note ---
Assessment and Plan Assessment and plan: 55 yo male with several days of progressively severe upper abdominal pain associated with nausea. Acute peritonitis Perforated abdominal viscus Nicotine dependence 11/24/2020. Patient is POD #1 for exploratory laparotomy and oversewing of perforated duodenal ulcer. Continue NG decompression for several days per surgery. Continue IV antibiotics with Zosyn. Continue IV Protonix 11/25/2020. Patient is s/p exploratory laparotomy and oversewing of perforated duodenal ulcer. Continue NG decompression per surgery recommendations. Continue IV antibiotics and IV Protonix. 11/26/2020. Patient is s/p repair and omental patch of perforated duodenal ulcer. Continue NGT to suction per surgery. Continue IV antibiotics and PPI. 11/27/2020. Patient is s/p repair and omental patch of perforated duodenal ulcer. Continue NGT to suction per surgery. Continue IV Zosyn and IV Protonix. 11/28/2020. Patient is s/p repair and omental patch of perforated duodenal ulcer. Continue NGT to suction per surgery. Continue IV antibiotics with Zosyn and PPI with Protonix 40 mg twice daily. Continue ambulation as tolerated. Adequate pain control History Interval history: No new issues overnight. Hospitalist Physical - Constitutional Vitals: Temp Pulse Resp BP Pulse Ox 98.9 F 115 H 20 158/89 95 11/28/20 07:05 11/28/20 07:05 11/28/20 07:05 11/28/20 07:05 11/28/20 07:05 General appearance: Present: no acute distress - EENT Eyes: Present: PERRL, EOM intact ENT: hearing intact, clear oral mucosa, dentition normal - Neck Neck: Present: supple, normal ROM - Respiratory Respiratory effort: normal Respiratory: bilateral: CTA - Cardiovascular Rhythm: regular Heart Sounds: Present: S1 & S2. Absent: gallop, rub - Extremities Extremities: no ischemia, No edema, Full ROM - Abdominal General gastrointestinal: soft, non-tender, non-distended, normal bowel sounds - Integumentary Integumentary: Present: clear, warm, dry - Neurologic Neurologic: CNII-XII intact, moves all extremities HEART Score - HEART Score Troponin: Troponin T < 0.010 ng/mL (0.00-0.029) 11/23/20 16:56 Results - Labs CBC & Chem 7: 11/28/20 06:48 11/28/20 06:48 Labs: Laboratory Last Values WBC 7.2 K/mm3 (4.5-11.0) 11/28/20 06:48 RBC 3.65 M/mm3 (3.65-5.03) 11/28/20 06:48 Hgb 11.7 gm/dl (11.8-15.2) L 11/28/20 06:48 Hct 34.7 % (35.5-45.6) L 11/28/20 06:48 MCV 95 fl (84-94) H 11/28/20 06:48 MCH 32 pg (28-32) 11/28/20 06:48 MCHC 34 % (32-34) 11/28/20 06:48 RDW 13.3 % (13.2-15.2) 11/28/20 06:48 Plt Count 413 K/mm3 (140-440) 11/28/20 06:48 Lymph % (Auto) 15.8 % (13.4-35.0) 11/28/20 06:48 [place] % (Auto) 14.4 % (0.0-7.3) H 11/28/20 06:48 Eos % (Auto) 0.4 % (0.0-4.3) 11/28/20 06:48 Baso % (Auto) 1.1 % (0.0-1.8) 11/28/20 06:48 Lymph # (Auto) 1.1 K/mm3 (1.2-5.4) L 11/28/20 06:48 [place] # (Auto) 1.0 K/mm3 (0.0-0.8) H 11/28/20 06:48 Eos # (Auto) 0.0 K/mm3 (0.0-0.4) 11/28/20 06:48 Baso # (Auto) 0.1 K/mm3 (0.0-0.1) 11/28/20 06:48 Seg Neutrophils % 68.3 % (40.0-70.0) 11/28/20 06:48 Seg Neutrophils # 4.9 K/mm3 (1.8-7.7) 11/28/20 06:48 PT 14.3 Sec. (12.2-14.9) 11/23/20 16:56 INR 1.13 (0.87-1.13) 11/23/20 16:56 Sodium 146 mmol/L (137-145) H 11/28/20 06:48 Potassium 3.6 mmol/L (3.6-5.0) 11/28/20 06:48 Chloride 109.2 mmol/L (98-107) H 11/28/20 06:48 Carbon Dioxide 25 mmol/L (22-30) 11/28/20 06:48 Anion Gap 15 mmol/L 11/28/20 06:48 BUN 14 mg/dL (9-20) 11/28/20 06:48 Creatinine 0.6 mg/dL (0.8-1.3) L 11/28/20 06:48 Estimated GFR > 60 ml/min 11/28/20 06:48 BUN/Creatinine Ratio 23 % 11/28/20 06:48 Glucose 183 mg/dL (75-100) H 11/28/20 06:48 POC Glucose 176 mg/dL (70-105) H 11/28/20 06:47 Lactic Acid 1.90 mmol/L (0.7-2.0) 11/23/20 16:56 Calcium 7.9 mg/dL (8.4-10.2) L 11/28/20 06:48 Magnesium 2.10 mg/dL (1.7-2.3) 11/23/20 16:56 Total Bilirubin 1.40 mg/dL (0.1-1.2) H 11/26/20 06:01 Direct Bilirubin 0.4 mg/dL (0-0.2) H 11/23/20 16:56 Indirect Bilirubin 1.2 mg/dL 11/23/20 16:56 AST 18 units/L (5-40) 11/26/20 06:01 ALT 13 units/L (7-56) 11/26/20 06:01 Alkaline Phosphatase 57 units/L (35-129) 11/26/20 06:01 Total Creatine Kinase 86 units/L (55-170) 11/23/20 16:56 Troponin T < 0.010 ng/mL (0.00-0.029) 11/23/20 16:56 Total Protein 6.1 g/dL (6.3-8.2) L 11/26/20 06:01 Albumin 2.4 g/dL (3.9-5) L 11/26/20 06:01 Albumin/Globulin Ratio 0.6 % 11/26/20 06:01 Lipase 18 units/L (13-60) 11/23/20 16:56 Urine Color Kristina (Yellow) 11/24/20 Unknown Urine Turbidity Clear (Clear) 11/24/20 Unknown Urine pH 5.0 (5.0-7.0) 11/24/20 Unknown Ur Specific [place] 1.056 (1.003-1.030) H 11/24/20 Unknown Urine Protein 100 mg/dl mg/dL (Negative) 11/24/20 Unknown Urine Glucose (UA) Neg mg/dL (Negative) 11/24/20 Unknown Urine Ketones Neg mg/dL (Negative) 11/24/20 Unknown Urine Blood Sm (Negative) 11/24/20 Unknown Urine Nitrite Neg (Negative) 11/24/20 Unknown Urine Bilirubin Neg (Negative) 11/24/20 Unknown Urine Urobilinogen < 2.0 mg/dL (<2.0) 11/24/20 Unknown Ur Leukocyte Esterase Neg (Negative) 11/24/20 Unknown Urine WBC (Auto) 3.0 /HPF (0.0-6.0) 11/24/20 Unknown Urine RBC (Auto) 5.0 /HPF (0.0-6.0) 11/24/20 Unknown Urine Bacteria (Auto) 1+ /HPF (Negative) 11/24/20 Unknown Urine Mucus Few /HPF 11/24/20 Unknown Urine Opiates Screen Presumptive negative 11/24/20 Unknown Urine Methadone Screen Presumptive negative 11/24/20 Unknown Ur Barbiturates Screen Presumptive negative 11/24/20 Unknown Ur Phencyclidine Scrn Presumptive negative 11/24/20 Unknown Ur Amphetamines Screen Presumptive negative 11/24/20 Unknown U Benzodiazepines Scrn Presumptive positive 11/24/20 Unknown Urine Cocaine Screen Presumptive negative 11/24/20 Unknown U Marijuana (THC) Screen Presumptive positive 11/24/20 Unknown Drugs of Abuse Note Disclamer 11/24/20 Unknown Blood Type A POSITIVE 11/23/20 19:09 Antibody Screen Negative 11/23/20 19:09 Microbiology: Microbiology 11/23/20 Unknown Abdomen Anaerobic Culture - Final 11/23/20 Unknown Abdomen Surgical Culture - Final Gustafson/IV: Voiding Method Urinal Active Medications - Current Medications Current Medications: Generic Name Dose Route Start Last Admin Trade Name Freq PRN Reason Stop Dose Admin Albuterol 2.5 mg 11/23/20 18:58 Albuterol 2.5 Mg/3 Ml Nebu IH Q3HRT PRN Shortness Of Breath Heparin Sodium (Porcine) 5,000 unit 11/24/20 22:00 11/27/20 22:27 Heparin 5,000 Unit/1 Ml Vial SUB-Q 5,000 unit Q12HR MATEUSZ Administration Hydralazine HCl 5 mg 11/26/20 00:33 11/28/20 04:04 Hydralazine 20 Mg/1 Ml Inj IV 5 mg Q4H PRN Administration Hypertension Piperacillin Sod/Tazobactam Sod 4.5 gm in 100 mls @ 200 mls/hr 11/24/20 03:00 11/28/20 04:03 Zosyn/Ns 4.5gm/100ml IV 200 mls/hr Q8H MATEUSZ Administration Protocol Lactated Ringer's 1,000 mls @ 75 mls/hr 11/24/20 21:45 11/27/20 22:30 Lactated Ringers IV 75 mls/hr DIRECT MATEUSZ Administration Lactated Ringer's 1,000 mls @ 999 mls/hr 11/28/20 08:00 Lactated Ringers IV 11/28/20 09:00 BOLUS ONE Morphine Sulfate 2 mg 11/23/20 18:58 11/28/20 04:03 Morphine 2 Mg/1 Ml Inj IV 2 mg Q4H PRN Administration Pain, Moderate (4-6) Pantoprazole Sodium 40 mg 11/24/20 10:00 11/27/20 22:28 Pantoprazole 40 Mg Inj IV 40 mg BID MATEUSZ Administration Phenol 1 spray 11/25/20 12:00 11/25/20 17:01 Phenol 1.4% 177 Ml Bottle MM 1 spray PRN PRN Administration Sore Throat Sodium Chloride 10 ml 11/23/20 22:00 11/27/20 22:28 Sodium Chloride 0.9% 10 Ml Flush Syringe IV 10 ml BID MATEUSZ Administration Sodium Chloride 10 ml 11/23/20 18:58 Sodium Chloride 0.9% 10 Ml Flush Syringe IV PRN PRN LINE FLUSH Sodium Hypochlorite 1 applic 11/24/20 18:41 Sodium Hypochlorite, Dakin's Full Strength (0.5%) 473 Ml Topical Soln TP Q12H PRN Wound Care
[2020-11-28] MEDS: PANTOPRAZOLE 40 MG INJ IV SCH ×2 (09:20→21:50)
[2020-11-28] MEDS: HEPARIN 5,000 UNIT/1 ML VIAL SUB-Q SCH ×2 (09:20→21:50)
[2020-11-28] MEDS: LACTATED RINGERS 1,000 ML IV SCH (09:21)
--- NOTE | 2020-11-28 12:41 | Progress Note ---
Assessment and Plan - Patient Problems (1) Perforated abdominal viscus Current Visit: Yes Status: Acute (2) Hypernatremia Current Visit: Yes Status: Acute Plan to address problem: 1) DC LR 2) Begin 1/2 NS 3) DC NG and begin diabetic CLD 4) DC O2 5) Ambulate in halls 6) Wound care Subjective Date of service: 11/28/20 Patient Reports: Positive: no new complaints, feels better, pain is less, voiding w/o difficulty, flatus, bowel movement Objective Vital Signs - 12hr 11/28/20 11/28/20 11/28/20 04:04 04:10 07:05 Temperature 99.2 F 98.9 F Pulse Rate 119 H 115 H Respiratory 18 20 Rate Blood Pressure 170/100 158/89 Blood Pressure 170/100 [Left] O2 Sat by Pulse 99 95 Oximetry 11/28/20 11:13 Temperature 98.7 F Pulse Rate 112 H Respiratory 20 Rate Blood Pressure 180/98 Blood Pressure [Left] O2 Sat by Pulse 97 Oximetry - General physical appearance well developed, well nourished, no distress - Abdomen soft, bowel sounds normal (non-tender without rebound or guarding) - Labs 11/28/20 06:48 11/28/20 06:48 Diabetes panel 11/28/20 Range/Units 06:48 Sodium 146 H (137-145) mmol/L Potassium 3.6 (3.6-5.0) mmol/L Chloride 109.2 H (98-107) mmol/L Carbon Dioxide 25 (22-30) mmol/L BUN 14 (9-20) mg/dL Creatinine 0.6 L (0.8-1.3) mg/dL Glucose 183 H (75-100) mg/dL Calcium 7.9 L (8.4-10.2) mg/dL Calcium panel 11/28/20 Range/Units 06:48 Calcium 7.9 L (8.4-10.2) mg/dL Pituitary panel 11/28/20 Range/Units 06:48 Sodium 146 H (137-145) mmol/L Potassium 3.6 (3.6-5.0) mmol/L Chloride 109.2 H (98-107) mmol/L Carbon Dioxide 25 (22-30) mmol/L BUN 14 (9-20) mg/dL Creatinine 0.6 L (0.8-1.3) mg/dL Glucose 183 H (75-100) mg/dL Calcium 7.9 L (8.4-10.2) mg/dL Adrenal panel 11/28/20 Range/Units 06:48 Sodium 146 H (137-145) mmol/L Potassium 3.6 (3.6-5.0) mmol/L Chloride 109.2 H (98-107) mmol/L Carbon Dioxide 25 (22-30) mmol/L BUN 14 (9-20) mg/dL Creatinine 0.6 L (0.8-1.3) mg/dL Glucose 183 H (75-100) mg/dL Calcium 7.9 L (8.4-10.2) mg/dL
[2020-11-28] MEDS: NACL 0.45%/KCL 20 MEQ 20 MEQ/1,000 ML BAG IV SCH (12:47)
[2020-11-29] MEDS: NACL 0.45%/KCL 20 MEQ 20 MEQ/1,000 ML BAG IV SCH ×2 (00:26→11:02)
[2020-11-29] MEDS: PIPERACIL/TAZOBACTA 4.5/NS 100 4.5 GM/100 ML VIAL IV SCH ×3 (03:26→18:25)
[2020-11-29] MEDS: MORPHINE 2 MG/1 ML INJ IV PRN ×4 (03:28→23:18)
[2020-11-29 04:54] LABS: Basophils % (Auto) 0.7 % (0.0-1.8); Eosinophils % (Auto) 0.7 % (0.0-4.3); Hematocrit 33.8 % (35.5-45.6); Hemoglobin 11.9 gm/dl (11.8-15.2); Lymphocytes # (Auto) 1.1 K/mm3 (1.2-5.4); Lymphocytes % (Auto) 16.5 % (13.4-35.0); Mean Corpuscular HGB Conc 35 % (32-34); Mean Corpuscular Volume 94 fl (84-94); Monocytes % (Auto) 15.5 % (0.0-7.3); Platelet Count 401 K/mm3 (140-440); Red Blood Count 3.59 M/mm3 (3.65-5.03); Red Cell Distribution Width 13.3 % (13.2-15.2)
[2020-11-29 05:09] LABS: Blood Urea Nitrogen 13 mg/dL (9-20); Calcium 8.2 mg/dL (8.4-10.2); Hemolysis Index 6
[2020-11-29 05:24] LABS: BUN/Creatinine Ratio 22
--- NOTE | 2020-11-29 08:06 | Progress Note ---
Assessment and Plan Assessment and plan: 55 yo male with several days of progressively severe upper abdominal pain associated with nausea. Work-up with CT abdomen and pelvis findings consistent with perforated viscus, evaluated by general surgeon underwent exploratory laparotomy and repair of perforated duodenal ulcer. Currently on IV antibiotics, started on clear liquids last night, advance diet as tolerated, surgery following -Acute peritonitis; due to perforated duodenal ulcer Continue supportive care antibiotics --Perforated abdominal viscus; status post surgical procedure Continue IV antibiotics IV fluids, tolerating clear liquids Advance diet per surgery --Ongoing tobacco use ; smoking cessation counseling Nicotine patch as needed --Hypertension; moderate control Low dose of hydralazine 10 mg p.o. 3 times a day, optimal pain control --Severe malnutrition/hypoalbuminemia; Albumin 2.4, due to underlying disease process Nutrition supplements and supportive care Advance diet as tolerated --DVT prophylaxis; Heparin subcu Ambulate as tolerated, disposition per surgery 11/24/2020. Patient is POD #1 for exploratory laparotomy and oversewing of perforated duodenal ulcer. Continue NG decompression for several days per surgery. Continue IV antibiotics with Zosyn. Continue IV Protonix 11/25/2020. Patient is s/p exploratory laparotomy and oversewing of perforated duodenal ulcer. Continue NG decompression per surgery recommendations. Continue IV antibiotics and IV Protonix. 11/26/2020. Patient is s/p repair and omental patch of perforated duodenal ulcer. Continue NGT to suction per surgery. Continue IV antibiotics and PPI. 11/27/2020. Patient is s/p repair and omental patch of perforated duodenal ulcer. Continue NGT to suction per surgery. Continue IV Zosyn and IV Protonix. 11/28/2020. Patient is s/p repair and omental patch of perforated duodenal ulcer. Continue NGT to suction per surgery. Continue IV antibiotics with Zosyn and PPI with Protonix 40 mg twice daily. Continue ambulation as tolerated. Adequate pain control 11/29/2020; patient was started on clear liquids last night, advance diet Continue antibiotics and supportive care, low-dose hydralazine for moderate hypertension History Interval history: I have seen and examined at the bedside this morning Patient's chart medications tests and reports reviewed Patient feels slightly better Still has some abdominal discomfort Mild elevation of blood pressures Tolerated clear liquids Vital signs noted Hospitalist Physical - Constitutional Vitals: Temp Pulse Resp BP Pulse Ox 98.2 F 106 H 18 174/95 96 11/29/20 07:21 11/29/20 07:21 11/29/20 07:21 11/29/20 07:21 11/29/20 07:21 General appearance: Present: no acute distress, well-nourished - EENT Eyes: Present: PERRL, EOM intact - Neck Neck: Present: supple, normal ROM - Respiratory Respiratory effort: normal Respiratory: bilateral: diminished, negative: rales, rhonchi, wheezing - Cardiovascular Rhythm: regular Heart Sounds: Present: S1 & S2 - Extremities Extremities: no ischemia, No edema - Abdominal General gastrointestinal: soft, non-tender, non-distended, normal bowel sounds - Integumentary Integumentary: Present: clear, warm - Psychiatric Psychiatric: appropriate mood/affect, cooperative - Neurologic Neurologic: CNII-XII intact, moves all extremities HEART Score - HEART Score Troponin: Troponin T < 0.010 ng/mL (0.00-0.029) 11/23/20 16:56 Results - Labs CBC & Chem 7: 11/29/20 04:14 11/29/20 04:14 Labs: Laboratory Last Values WBC 6.6 K/mm3 (4.5-11.0) 11/29/20 04:14 RBC 3.59 M/mm3 (3.65-5.03) L 11/29/20 04:14 Hgb 11.9 gm/dl (11.8-15.2) 11/29/20 04:14 Hct 33.8 % (35.5-45.6) L 11/29/20 04:14 MCV 94 fl (84-94) 11/29/20 04:14 MCH 33 pg (28-32) H 11/29/20 04:14 MCHC 35 % (32-34) H 11/29/20 04:14 RDW 13.3 % (13.2-15.2) 11/29/20 04:14 Plt Count 401 K/mm3 (140-440) 11/29/20 04:14 Lymph % (Auto) 16.5 % (13.4-35.0) 11/29/20 04:14 [place] % (Auto) 15.5 % (0.0-7.3) H 11/29/20 04:14 Eos % (Auto) 0.7 % (0.0-4.3) 11/29/20 04:14 Baso % (Auto) 0.7 % (0.0-1.8) 11/29/20 04:14 Lymph # (Auto) 1.1 K/mm3 (1.2-5.4) L 11/29/20 04:14 [place] # (Auto) 1.0 K/mm3 (0.0-0.8) H 11/29/20 04:14 Eos # (Auto) 0.0 K/mm3 (0.0-0.4) 11/29/20 04:14 Baso # (Auto) 0.0 K/mm3 (0.0-0.1) 11/29/20 04:14 Seg Neutrophils % 66.6 % (40.0-70.0) 11/29/20 04:14 Seg Neutrophils # 4.4 K/mm3 (1.8-7.7) 11/29/20 04:14 PT 14.3 Sec. (12.2-14.9) 11/23/20 16:56 INR 1.13 (0.87-1.13) 11/23/20 16:56 Sodium 139 mmol/L (137-145) 11/29/20 04:14 Potassium 3.6 mmol/L (3.6-5.0) 11/29/20 04:14 Chloride 103.0 mmol/L (98-107) 11/29/20 04:14 Carbon Dioxide 25 mmol/L (22-30) 11/29/20 04:14 Anion Gap 15 mmol/L 11/29/20 04:14 BUN 13 mg/dL (9-20) 11/29/20 04:14 Creatinine 0.6 mg/dL (0.8-1.3) L 11/29/20 04:14 Estimated GFR > 60 ml/min 11/29/20 04:14 BUN/Creatinine Ratio 22 % 11/29/20 04:14 Glucose 202 mg/dL (75-100) H 11/29/20 04:14 POC Glucose 203 mg/dL (70-105) H 11/28/20 20:55 Lactic Acid 1.90 mmol/L (0.7-2.0) 11/23/20 16:56 Calcium 8.2 mg/dL (8.4-10.2) L 11/29/20 04:14 Magnesium 2.10 mg/dL (1.7-2.3) 11/23/20 16:56 Total Bilirubin 1.40 mg/dL (0.1-1.2) H 11/26/20 06:01 Direct Bilirubin 0.4 mg/dL (0-0.2) H 11/23/20 16:56 Indirect Bilirubin 1.2 mg/dL 11/23/20 16:56 AST 18 units/L (5-40) 11/26/20 06:01 ALT 13 units/L (7-56) 11/26/20 06:01 Alkaline Phosphatase 57 units/L (35-129) 11/26/20 06:01 Total Creatine Kinase 86 units/L (55-170) 11/23/20 16:56 Troponin T < 0.010 ng/mL (0.00-0.029) 11/23/20 16:56 Total Protein 6.1 g/dL (6.3-8.2) L 11/26/20 06:01 Albumin 2.4 g/dL (3.9-5) L 11/26/20 06:01 Albumin/Globulin Ratio 0.6 % 11/26/20 06:01 Lipase 18 units/L (13-60) 11/23/20 16:56 Urine Color Kristina (Yellow) 11/24/20 Unknown Urine Turbidity Clear (Clear) 11/24/20 Unknown Urine pH 5.0 (5.0-7.0) 11/24/20 Unknown Ur Specific [place] 1.056 (1.003-1.030) H 11/24/20 Unknown Urine Protein 100 mg/dl mg/dL (Negative) 11/24/20 Unknown Urine Glucose (UA) Neg mg/dL (Negative) 11/24/20 Unknown Urine Ketones Neg mg/dL (Negative) 11/24/20 Unknown Urine Blood Sm (Negative) 11/24/20 Unknown Urine Nitrite Neg (Negative) 11/24/20 Unknown Urine Bilirubin Neg (Negative) 11/24/20 Unknown Urine Urobilinogen < 2.0 mg/dL (<2.0) 11/24/20 Unknown Ur Leukocyte Esterase Neg (Negative) 11/24/20 Unknown Urine WBC (Auto) 3.0 /HPF (0.0-6.0) 11/24/20 Unknown Urine RBC (Auto) 5.0 /HPF (0.0-6.0) 11/24/20 Unknown Urine Bacteria (Auto) 1+ /HPF (Negative) 11/24/20 Unknown Urine Mucus Few /HPF 11/24/20 Unknown Urine Opiates Screen Presumptive negative 11/24/20 Unknown Urine Methadone Screen Presumptive negative 11/24/20 Unknown Ur Barbiturates Screen Presumptive negative 11/24/20 Unknown Ur Phencyclidine Scrn Presumptive negative 11/24/20 Unknown Ur Amphetamines Screen Presumptive negative 11/24/20 Unknown U Benzodiazepines Scrn Presumptive positive 11/24/20 Unknown Urine Cocaine Screen Presumptive negative 11/24/20 Unknown U Marijuana (THC) Screen Presumptive positive 11/24/20 Unknown Drugs of Abuse Note Disclamer 11/24/20 Unknown Blood Type A POSITIVE 11/23/20 19:09 Antibody Screen Negative 11/23/20 19:09 Gustafson/IV: Voiding Method Urinal Active Medications - Current Medications Current Medications: Generic Name Dose Route Start Last Admin Trade Name Freq PRN Reason Stop Dose Admin Albuterol 2.5 mg 11/23/20 18:58 Albuterol 2.5 Mg/3 Ml Nebu IH Q3HRT PRN Shortness Of Breath Heparin Sodium (Porcine) 5,000 unit 11/24/20 22:00 11/28/20 21:50 Heparin 5,000 Unit/1 Ml Vial SUB-Q 5,000 unit Q12HR MATEUSZ Administration Hydralazine HCl 5 mg 11/26/20 00:33 11/28/20 11:20 Hydralazine 20 Mg/1 Ml Inj IV 5 mg Q4H PRN Administration Hypertension Piperacillin Sod/Tazobactam Sod 4.5 gm in 100 mls @ 200 mls/hr 11/24/20 03:00 11/29/20 03:26 Zosyn/Ns 4.5gm/100ml IV 200 mls/hr Q8H MATEUSZ Administration Protocol Potassium Chloride/Sodium Chloride 20 meq in 1,000 mls @ 100 mls/hr 11/28/20 13:00 11/29/20 00:26 Ns 0.45/Kcl 20meq IV 100 mls/hr DIRECT MATEUSZ Administration Morphine Sulfate 2 mg 11/23/20 18:58 11/29/20 03:28 Morphine 2 Mg/1 Ml Inj IV 2 mg Q4H PRN Administration Pain, Moderate (4-6) Pantoprazole Sodium 40 mg 11/24/20 10:00 11/28/20 21:50 Pantoprazole 40 Mg Inj IV 40 mg BID MATEUSZ Administration Phenol 1 spray 11/25/20 12:00 11/25/20 17:01 Phenol 1.4% 177 Ml Bottle MM 1 spray PRN PRN Administration Sore Throat Sodium Chloride 10 ml 11/23/20 22:00 11/28/20 21:54 Sodium Chloride 0.9% 10 Ml Flush Syringe IV 10 ml BID MATEUSZ Administration Sodium Chloride 10 ml 11/23/20 18:58 Sodium Chloride 0.9% 10 Ml Flush Syringe IV PRN PRN LINE FLUSH Sodium Hypochlorite 1 applic 11/24/20 18:41 Sodium Hypochlorite, Dakin's Full Strength (0.5%) 473 Ml Topical Soln TP Q12H PRN Wound Care
[2020-11-29] MEDS: PANTOPRAZOLE 40 MG INJ IV SCH ×2 (09:56→21:15)
[2020-11-29] MEDS: hydrALAZINE 10 MG TAB PO SCH ×3 (09:56→21:16)
[2020-11-29] MEDS: HEPARIN 5,000 UNIT/1 ML VIAL SUB-Q SCH ×2 (09:57→21:16)
--- NOTE | 2020-11-29 10:43 | Progress Note ---
Assessment and Plan - Patient Problems (1) Perforated abdominal viscus Current Visit: Yes Status: Acute (2) Hypernatremia Current Visit: Yes Status: Acute Plan to address problem: 1) Continue CLD 2) Check CT abd/pelvis, abisai with persistent, mild tachycardia 3) Ambulate in halls 4) Continue IS Subjective Date of service: 11/29/20 Patient Reports: Positive: no new complaints, bowel movement (Some nausea with CLD.) Objective Vital Signs - 12hr 11/28/20 11/29/20 11/29/20 23:29 03:56 07:21 Temperature 99 F 98.6 F 98.2 F Pulse Rate 108 H 107 H 106 H Respiratory 18 18 18 Rate Blood Pressure 174/95 Blood Pressure 157/104 152/91 [Left] O2 Sat by Pulse 95 95 96 Oximetry 11/29/20 09:56 Temperature Pulse Rate 106 H Respiratory Rate Blood Pressure 174/95 Blood Pressure [Left] O2 Sat by Pulse Oximetry - Abdomen soft, bowel sounds normal (Mild distension. Mild diffuse tenderness without rebound or guarding.) - Labs 11/29/20 04:14 11/29/20 04:14 Diabetes panel 11/29/20 Range/Units 04:14 Sodium 139 (137-145) mmol/L Potassium 3.6 (3.6-5.0) mmol/L Chloride 103.0 (98-107) mmol/L Carbon Dioxide 25 (22-30) mmol/L BUN 13 (9-20) mg/dL Creatinine 0.6 L (0.8-1.3) mg/dL Glucose 202 H (75-100) mg/dL Calcium 8.2 L (8.4-10.2) mg/dL Calcium panel 11/29/20 Range/Units 04:14 Calcium 8.2 L (8.4-10.2) mg/dL Pituitary panel 11/29/20 Range/Units 04:14 Sodium 139 (137-145) mmol/L Potassium 3.6 (3.6-5.0) mmol/L Chloride 103.0 (98-107) mmol/L Carbon Dioxide 25 (22-30) mmol/L BUN 13 (9-20) mg/dL Creatinine 0.6 L (0.8-1.3) mg/dL Glucose 202 H (75-100) mg/dL Calcium 8.2 L (8.4-10.2) mg/dL Adrenal panel 11/29/20 Range/Units 04:14 Sodium 139 (137-145) mmol/L Potassium 3.6 (3.6-5.0) mmol/L Chloride 103.0 (98-107) mmol/L Carbon Dioxide 25 (22-30) mmol/L BUN 13 (9-20) mg/dL Creatinine 0.6 L (0.8-1.3) mg/dL Glucose 202 H (75-100) mg/dL Calcium 8.2 L (8.4-10.2) mg/dL - Imaging Additional Studies: Only about 1,000 ml on IS.
[2020-11-29] MEDS: hydrALAZINE 20 MG/1 ML INJ IV PRN ×2 (13:18→19:55)
--- NOTE | 2020-11-29 16:28 | Cat Scan Report ---
CT abdomen pelvis w con INDICATION: MAIN. TECHNIQUE: All CT scans at this location are performed using CT dose reduction for ALARA by means of automated e xposure control. COMPARISON: 11/23/2020 FINDINGS: Free intraperitoneal gas persists but has decreased . There is again fluid and inflammatory change in the left upper quadrant around the stomach, with development of a small left pleural effusion. Liver, gallbladder, spleen, pancreas, kidneys and adrenals are negative. Abdominal aorta is normal in size. No adenopathy. Pelvis Relatively small amount of free fluid in the dependent pelvis. Mild, diffuse mesenteric edema. Small bowel is moderately distended but slightly less thick walled. Colon is normal in caliber. IMPRESSION: 1. Persistent left upper quadrant inflammatory change, with interval development of a small left pleu ral effusion. 2. Persistent but decreased free intraperitoneal gas and fluid. 3. Small bowel distention, consistent with ileus. Inflammatory change of the small bowel is slightly improved. Signer Name: George Pineda MD Signed: 11/29/2020 4:23 PM Workstation Name: [id number]
[2020-11-30] MEDS: NACL 0.45%/KCL 20 MEQ 20 MEQ/1,000 ML BAG IV SCH (00:06)
[2020-11-30] MEDS: PIPERACIL/TAZOBACTA 4.5/NS 100 4.5 GM/100 ML VIAL IV SCH ×3 (04:21→21:14)
[2020-11-30] MEDS: hydrALAZINE 10 MG TAB PO SCH ×3 (06:22→21:15)
[2020-11-30] MEDS: hydrALAZINE 20 MG/1 ML INJ IV PRN (06:22)
[2020-11-30] MEDS: MORPHINE 2 MG/1 ML INJ IV PRN ×2 (06:28→21:13)
[2020-11-30] MEDS: PANTOPRAZOLE 40 MG INJ IV SCH ×3 (08:44→21:12)
--- NOTE | 2020-11-30 08:58 | Progress Note ---
Assessment and Plan Assessment and plan: 55 yo male with several days of progressively severe upper abdominal pain associated with nausea. Work-up with CT abdomen and pelvis findings consistent with perforated viscus, evaluated by general surgeon underwent exploratory laparotomy and repair of perforated duodenal ulcer. Currently on IV antibiotics, started on clear liquids last night, advance diet as tolerated, surgery following, surgeon repeated the chest CT abdomen findings consistent with, proctocolitis and small pleural effusion. Continue to monitor continue clear liquids. Assessment and plan -Acute peritonitis; due to perforated duodenal ulcer Continue supportive care antibiotics --Perforated abdominal viscus; status post surgical procedure Continue IV antibiotics IV fluids, tolerating clear liquids Advance diet per surgery --Ongoing tobacco use ; smoking cessation counseling Nicotine patch as needed --Hypertension; moderate control Low dose of hydralazine 10 mg p.o. 3 times a day, optimal pain control --Severe malnutrition/hypoalbuminemia; Albumin 2.4, due to underlying disease process Nutrition supplements and supportive care Advance diet as tolerated --DVT prophylaxis; Heparin subcu Ambulate as tolerated, disposition per surgery 11/24/2020. Patient is POD #1 for exploratory laparotomy and oversewing of perf orated duodenal ulcer. Continue NG decompression for several days per surgery. Continue IV antibiotics with Zosyn. Continue IV Protonix 11/25/2020. Patient is s/p exploratory laparotomy and oversewing of perforated duodenal ulcer. Continue NG decompression per surgery recommendations. Continue IV antibiotics and IV Protonix. 11/26/2020. Patient is s/p repair and omental patch of perforated duodenal ulcer. Continue NGT to suction per surgery. Continue IV antibiotics and PPI. 11/27/2020. Patient is s/p repair and omental patch of perforated duodenal ulcer. Continue NGT to suction per surgery. Continue IV Zosyn and IV Protonix. 11/28/2020. Patient is s/p repair and omental patch of perforated duodenal ulcer. Continue NGT to suction per surgery. Continue IV antibiotics with Zosyn and PPI with Protonix 40 mg twice daily. Continue ambulation as tolerated. Adequate pain control 11/29/2020; patient was started on clear liquids last night, advance diet Continue antibiotics and supportive care, low-dose hydralazine for moderate hypertension 11/30/2020; patient's repeat CT scan show paralytic ileus, patient is on clear liquids Continue conservative management, surgery following Possible discharge in 1 to 2 days if stable History Interval history: I have seen and examined the patient Patient's chart and medications reviewed Patient feels slightly better Repeat CT abdomen pelvis reveals small paralytic ileus and small pleural eff usion. Patient tolerating clear liquids Vital signs noted Hospitalist Physical - Constitutional Vitals: Temp Pulse Resp BP Pulse Ox 98.6 F 103 H 18 144/84 95 11/30/20 07:12 11/30/20 07:12 11/30/20 07:12 11/30/20 07:12 11/30/20 07:12 General appearance: Present: no acute distress, well-nourished - EENT Eyes: Present: PERRL, EOM intact - Neck Neck: Present: supple, normal ROM - Respiratory Respiratory effort: normal Respiratory: bilateral: diminished, negative: rales, rhonchi, wheezing - Cardiovascular Rhythm: regular Heart Sounds: Present: S1 & S2 - Extremities Extremities: no ischemia, No edema - Abdominal General gastrointestinal: soft, non-tender, tender (Mild tenderness), normal bowel sounds - Integumentary Integumentary: Present: clear, warm - Psychiatric Psychiatric: appropriate mood/affect, cooperative - Neurologic Neurologic: CNII-XII intact, moves all extremities HEART Score - HEART Score Troponin: Troponin T < 0.010 ng/mL (0.00-0.029) 11/23/20 16:56 Results - Labs CBC & Chem 7: 11/29/20 04:14 11/29/20 04:14 Labs: Laboratory Last Values WBC 6.6 K/mm3 (4.5-11.0) 11/29/20 04:14 RBC 3.59 M/mm3 (3.65-5.03) L 11/29/20 04:14 Hgb 11.9 gm/dl (11.8-15.2) 11/29/20 04:14 Hct 33.8 % (35.5-45.6) L 11/29/20 04:14 MCV 94 fl (84-94) 11/29/20 04:14 MCH 33 pg (28-32) H 11/29/20 04:14 MCHC 35 % (32-34) H 11/29/20 04:14 RDW 13.3 % (13.2-15.2) 11/29/20 04:14 Plt Count 401 K/mm3 (140-440) 11/29/20 04:14 Lymph % (Auto) 16.5 % (13.4-35.0) 11/29/20 04:14 [place] % (Auto) 15.5 % (0.0-7.3) H 11/29/20 04:14 Eos % (Auto) 0.7 % (0.0-4.3) 11/29/20 04:14 Baso % (Auto) 0.7 % (0.0-1.8) 11/29/20 04:14 Lymph # (Auto) 1.1 K/mm3 (1.2-5.4) L 11/29/20 04:14 [place] # (Auto) 1.0 K/mm3 (0.0-0.8) H 11/29/20 04:14 Eos # (Auto) 0.0 K/mm3 (0.0-0.4) 11/29/20 04:14 Baso # (Auto) 0.0 K/mm3 (0.0-0.1) 11/29/20 04:14 Seg Neutrophils % 66.6 % (40.0-70.0) 11/29/20 04:14 Seg Neutrophils # 4.4 K/mm3 (1.8-7.7) 11/29/20 04:14 PT 14.3 Sec. (12.2-14.9) 11/23/20 16:56 INR 1.13 (0.87-1.13) 11/23/20 16:56 Sodium 139 mmol/L (137-145) 11/29/20 04:14 Potassium 3.6 mmol/L (3.6-5.0) 11/29/20 04:14 Chloride 103.0 mmol/L (98-107) 11/29/20 04:14 Carbon Dioxide 25 mmol/L (22-30) 11/29/20 04:14 Anion Gap 15 mmol/L 11/29/20 04:14 BUN 13 mg/dL (9-20) 11/29/20 04:14 Creatinine 0.6 mg/dL (0.8-1.3) L 11/29/20 04:14 Estimated GFR > 60 ml/min 11/29/20 04:14 BUN/Creatinine Ratio 22 % 11/29/20 04:14 Glucose 202 mg/dL (75-100) H 11/29/20 04:14 POC Glucose 121 mg/dL (70-105) H 11/29/20 21:01 Lactic Acid 1.90 mmol/L (0.7-2.0) 11/23/20 16:56 Calcium 8.2 mg/dL (8.4-10.2) L 11/29/20 04:14 Magnesium 2.10 mg/dL (1.7-2.3) 11/23/20 16:56 Total Bilirubin 1.40 mg/dL (0.1-1.2) H 11/26/20 06:01 Direct Bilirubin 0.4 mg/dL (0-0.2) H 11/23/20 16:56 Indirect Bilirubin 1.2 mg/dL 11/23/20 16:56 AST 18 units/L (5-40) 11/26/20 06:01 ALT 13 units/L (7-56) 11/26/20 06:01 Alkaline Phosphatase 57 units/L (35-129) 11/26/20 06:01 Total Creatine Kinase 86 units/L (55-170) 11/23/20 16:56 Troponin T < 0.010 ng/mL (0.00-0.029) 11/23/20 16:56 Total Protein 6.1 g/dL (6.3-8.2) L 11/26/20 06:01 Albumin 2.4 g/dL (3.9-5) L 11/26/20 06:01 Albumin/Globulin Ratio 0.6 % 11/26/20 06:01 Lipase 18 units/L (13-60) 11/23/20 16:56 Urine Color Kristina (Yellow) 11/24/20 Unknown Urine Turbidity Clear (Clear) 11/24/20 Unknown Urine pH 5.0 (5.0-7.0) 11/24/20 Unknown Ur Specific [place] 1.056 (1.003-1.030) H 11/24/20 Unknown Urine Protein 100 mg/dl mg/dL (Negative) 11/24/20 Unknown Urine Glucose (UA) Neg mg/dL (Negative) 11/24/20 Unknown Urine Ketones Neg mg/dL (Negative) 11/24/20 Unknown Urine Blood Sm (Negative) 11/24/20 Unknown Urine Nitrite Neg (Negative) 11/24/20 Unknown Urine Bilirubin Neg (Negative) 11/24/20 Unknown Urine Urobilinogen < 2.0 mg/dL (<2.0) 11/24/20 Unknown Ur Leukocyte Esterase Neg (Negative) 11/24/20 Unknown Urine WBC (Auto) 3.0 /HPF (0.0-6.0) 11/24/20 Unknown Urine RBC (Auto) 5.0 /HPF (0.0-6.0) 11/24/20 Unknown Urine Bacteria (Auto) 1+ /HPF (Negative) 11/24/20 Unknown Urine Mucus Few /HPF 11/24/20 Unknown Urine Opiates Screen Presumptive negative 11/24/20 Unknown Urine Methadone Screen Presumptive negative 11/24/20 Unknown Ur Barbiturates Screen Presumptive negative 11/24/20 Unknown Ur Phencyclidine Scrn Presumptive negative 11/24/20 Unknown Ur Amphetamines Screen Presumptive negative 11/24/20 Unknown U Benzodiazepines Scrn Presumptive positive 11/24/20 Unknown Urine Cocaine Screen Presumptive negative 11/24/20 Unknown U Marijuana (THC) Screen Presumptive positive 11/24/20 Unknown Drugs of Abuse Note Disclamer 11/24/20 Unknown Blood Type A POSITIVE 11/23/20 19:09 Antibody Screen Negative 11/23/20 19:09 Gustafson/IV: Voiding Method Urinal Active Medications - Current Medications Current Medications: Generic Name Dose Route Start Last Admin Trade Name Freq PRN Reason Stop Dose Admin Albuterol 2.5 mg 11/23/20 18:58 Albuterol 2.5 Mg/3 Ml Nebu IH Q3HRT PRN Shortness Of Breath Heparin Sodium (Porcine) 5,000 unit 11/24/20 22:00 11/29/20 21:16 Heparin 5,000 Unit/1 Ml Vial SUB-Q 5,000 unit Q12HR MATEUSZ Administration Hydralazine HCl 5 mg 11/26/20 00:33 11/30/20 06:22 Hydralazine 20 Mg/1 Ml Inj IV 5 mg Q4H PRN Administration Hypertension Hydralazine HCl 10 mg 11/29/20 08:30 11/30/20 06:22 Hydralazine 10 Mg Tab PO 10 mg Q8HR MATEUSZ Administration Piperacillin Sod/Tazobactam Sod 4.5 gm in 100 mls @ 200 mls/hr 11/24/20 03:00 11/30/20 04:21 Zosyn/Ns 4.5gm/100ml IV 200 mls/hr Q8H MATEUSZ Administration Protocol Potassium Chloride/Sodium Chloride 20 meq in 1,000 mls @ 100 mls/hr 11/28/20 13:00 11/30/20 00:06 Ns 0.45/Kcl 20meq IV 100 mls/hr DIRECT MATEUSZ Administration Morphine Sulfate 2 mg 11/23/20 18:58 11/30/20 06:28 Morphine 2 Mg/1 Ml Inj IV 2 mg Q4H PRN Administration Pain, Moderate (4-6) Pantoprazole Sodium 40 mg 11/24/20 10:00 11/30/20 08:44 Pantoprazole 40 Mg Inj IV 40 mg BID MATEUSZ Administration Phenol 1 spray 11/25/20 12:00 11/25/20 17:01 Phenol 1.4% 177 Ml Bottle MM 1 spray PRN PRN Administration Sore Throat Sodium Chloride 10 ml 11/23/20 22:00 11/29/20 21:17 Sodium Chloride 0.9% 10 Ml Flush Syringe IV 10 ml BID MATEUSZ Administration Sodium Chloride 10 ml 11/23/20 18:58 Sodium Chloride 0.9% 10 Ml Flush Syringe IV PRN PRN LINE FLUSH Sodium Hypochlorite 1 applic 11/24/20 18:41 11/29/20 18:24 Sodium Hypochlorite, Dakin's Full Strength (0.5%) 473 Ml Topical Soln TP 1 applicatio Q12H PRN Administration Wound Care
--- NOTE | 2020-11-30 10:54 | Progress Note ---
Assessment and Plan - Patient Problems (1) Perforated abdominal viscus Current Visit: Yes Status: Acute (2) Hypernatremia Current Visit: Yes Status: Acute (3) Paralytic ileus Current Visit: Yes Status: Acute Plan to address problem: 1) Ambulate as much as possible. 2) Minimize narcotic usage 3) Continue CLD for now. 4) Decrease IVF to 50 ml/hr Subjective Date of service: 11/30/20 Patient Reports: Positive: no new complaints, tolerating liquids well, flatus, no bowel movement Objective Vital Signs - 12hr 11/29/20 11/29/20 11/29/20 22:00 23:18 23:25 Temperature 99.5 F Pulse Rate 105 H 115 H Respiratory 17 17 Rate Respiratory 17 Rate [Abdomen] Blood Pressure Blood Pressure 148/91 [Left] O2 Sat by Pulse 96 Oximetry 11/29/20 11/30/20 11/30/20 23:48 05:17 06:22 Temperature 98.8 F Pulse Rate 105 H 100 H Respiratory 17 18 Rate Respiratory Rate [Abdomen] Blood Pressure 175/100 163/101 Blood Pressure [Left] O2 Sat by Pulse 96 Oximetry 11/30/20 11/30/20 11/30/20 06:28 06:58 07:12 Temperature 98.6 F Pulse Rate 103 H Respiratory 17 17 18 Rate Respiratory Rate [Abdomen] Blood Pressure 144/84 Blood Pressure [Left] O2 Sat by Pulse 95 Oximetry - Abdomen soft, bowel sounds normal (Appropriately TTP without rebound or guarding.), other (Appropriately TTP without rebound or guarding) - Labs 11/29/20 04:14 11/29/20 04:14 - Imaging CT scan - abdomen: report reviewed CT Scan - head: report reviewed
[2020-11-30] MEDS: HEPARIN 5,000 UNIT/1 ML VIAL SUB-Q SCH ×2 (21:11→21:13)
[2020-12-01] MEDS: PIPERACIL/TAZOBACTA 4.5/NS 100 4.5 GM/100 ML VIAL IV SCH ×2 (03:56→11:15)
[2020-12-01 04:55] LABS: Alanine Aminotransferase 19 units/L (7-56); Albumin 2.5 g/dL (3.9-5); Blood Urea Nitrogen 8 mg/dL (9-20); Calcium 8.1 mg/dL (8.4-10.2); Hemolysis Index 0
[2020-12-01 05:02] LABS: BUN/Creatinine Ratio 16
[2020-12-01] MEDS: hydrALAZINE 20 MG/1 ML INJ IV PRN ×2 (05:25→11:15)
[2020-12-01] MEDS: hydrALAZINE 10 MG TAB PO SCH ×3 (05:29→21:55)
[2020-12-01] MEDS: PANTOPRAZOLE 40 MG INJ IV SCH ×2 (09:20→21:55)
[2020-12-01] MEDS: HEPARIN 5,000 UNIT/1 ML VIAL SUB-Q SCH ×2 (09:23→21:55)
--- NOTE | 2020-12-01 12:11 | Progress Note ---
Assessment and Plan Assessment and plan: 55 yo male with several days of progressively severe upper abdominal pain associated with nausea. Work-up with CT abdomen and pelvis findings consistent with perforated viscus, evaluated by general surgeon underwent exploratory laparotomy and repair of perforated duodenal ulcer. Currently on IV antibiotics, started on clear liquids last night, advance diet as tolerated, surgery following, surgeon repeated the chest CT abdomen findings consistent with, proctocolitis and small pleural effusion. Continue to monitor continue clear liquids. Assessment and plan -Acute peritonitis; due to perforated duodenal ulcer Continue supportive care antibiotics --Perforated abdominal viscus; status post surgical procedure Continue IV antibiotics IV fluids, tolerating clear liquids Advance diet per surgery --Ongoing tobacco use ; smoking cessation counseling Nicotine patch as needed --Hypertension; moderate control Low dose of hydralazine 10 mg p.o. 3 times a day, optimal pain control --Severe malnutrition/hypoalbuminemia; Albumin 2.4, due to underlying disease process Nutrition supplements and supportive care Advance diet as tolerated --DVT prophylaxis; Heparin subcu Ambulate as tolerated, disposition per surgery 11/24/2020. Patient is POD #1 for exploratory laparotomy and oversewing of perf orated duodenal ulcer. Continue NG decompression for several days per surgery. Continue IV antibiotics with Zosyn. Continue IV Protonix 11/25/2020. Patient is s/p exploratory laparotomy and oversewing of perforated duodenal ulcer. Continue NG decompression per surgery recommendations. Continue IV antibiotics and IV Protonix. 11/26/2020. Patient is s/p repair and omental patch of perforated duodenal ulcer. Continue NGT to suction per surgery. Continue IV antibiotics and PPI. 11/27/2020. Patient is s/p repair and omental patch of perforated duodenal ulcer. Continue NGT to suction per surgery. Continue IV Zosyn and IV Protonix. 11/28/2020. Patient is s/p repair and omental patch of perforated duodenal ulcer. Continue NGT to suction per surgery. Continue IV antibiotics with Zosyn and PPI with Protonix 40 mg twice daily. Continue ambulation as tolerated. Adequate pain control 11/29/2020; patient was started on clear liquids last night, advance diet Continue antibiotics and supportive care, low-dose hydralazine for moderate hypertension 11/30/2020; patient's repeat CT scan show paralytic ileus, patient is on clear liquids Continue conservative management, surgery following Possible discharge in 1 to 2 days if stable 12/01/2020; patient feels slightly better, advance diet as tolerated per surgery Increase ambulation as tolerated, possible discharge in 1 to 2 days if stable Consults report sent recommendations noted appreciated History Interval history: I have seen and examined the patient at the bedside this morning Patient's chart and medications reviewed, patient has mild abdominal discomfort tolerating clear liquids Feels slightly better than yesterday Denies nausea vomiting Vital signs reviewed Hospitalist Physical - Constitutional Vitals: Temp Pulse Resp BP Pulse Ox 97.4 F L 104 H 18 164/90 97 12/01/20 11:10 12/01/20 11:15 12/01/20 11:10 12/01/20 11:15 12/01/20 11:10 General appearance: Present: no acute distress, well-nourished - EENT Eyes: Present: PERRL, EOM intact, scleral icterus, conjunctival injection - Neck Neck: Present: supple, normal ROM - Respiratory Respiratory effort: normal Respiratory: bilateral: diminished, negative: rales, rhonchi, wheezing - Cardiovascular Rhythm: regular Heart Sounds: Present: S1 & S2 - Extremities Extremities: no ischemia, No edema - Abdominal General gastrointestinal: soft, non-tender, non-distended, normal bowel sounds - Integumentary Integumentary: Present: clear, warm - Psychiatric Psychiatric: appropriate mood/affect, other - Neurologic Neurologic: moves all extremities HEART Score - HEART Score Troponin: Troponin T < 0.010 ng/mL (0.00-0.029) 11/23/20 16:56 Results - Labs CBC & Chem 7: 11/29/20 04:14 12/01/20 04:19 Labs: Laboratory Last Values WBC 6.6 K/mm3 (4.5-11.0) 11/29/20 04:14 RBC 3.59 M/mm3 (3.65-5.03) L 11/29/20 04:14 Hgb 11.9 gm/dl (11.8-15.2) 11/29/20 04:14 Hct 33.8 % (35.5-45.6) L 11/29/20 04:14 MCV 94 fl (84-94) 11/29/20 04:14 MCH 33 pg (28-32) H 11/29/20 04:14 MCHC 35 % (32-34) H 11/29/20 04:14 RDW 13.3 % (13.2-15.2) 11/29/20 04:14 Plt Count 401 K/mm3 (140-440) 11/29/20 04:14 Lymph % (Auto) 16.5 % (13.4-35.0) 11/29/20 04:14 [place] % (Auto) 15.5 % (0.0-7.3) H 11/29/20 04:14 Eos % (Auto) 0.7 % (0.0-4.3) 11/29/20 04:14 Baso % (Auto) 0.7 % (0.0-1.8) 11/29/20 04:14 Lymph # (Auto) 1.1 K/mm3 (1.2-5.4) L 11/29/20 04:14 [place] # (Auto) 1.0 K/mm3 (0.0-0.8) H 11/29/20 04:14 Eos # (Auto) 0.0 K/mm3 (0.0-0.4) 11/29/20 04:14 Baso # (Auto) 0.0 K/mm3 (0.0-0.1) 11/29/20 04:14 Seg Neutrophils % 66.6 % (40.0-70.0) 11/29/20 04:14 Seg Neutrophils # 4.4 K/mm3 (1.8-7.7) 11/29/20 04:14 PT 14.3 Sec. (12.2-14.9) 11/23/20 16:56 INR 1.13 (0.87-1.13) 11/23/20 16:56 Sodium 137 mmol/L (137-145) 12/01/20 04:19 Potassium 3.5 mmol/L (3.6-5.0) L 12/01/20 04:19 Chloride 101.4 mmol/L (98-107) 12/01/20 04:19 Carbon Dioxide 26 mmol/L (22-30) 12/01/20 04:19 Anion Gap 13 mmol/L 12/01/20 04:19 BUN 8 mg/dL (9-20) L 12/01/20 04:19 Creatinine 0.5 mg/dL (0.8-1.3) L 12/01/20 04:19 Estimated GFR > 60 ml/min 12/01/20 04:19 BUN/Creatinine Ratio 16 % 12/01/20 04:19 Glucose 187 mg/dL (75-100) H 12/01/20 04:19 POC Glucose 159 mg/dL (70-105) H 12/01/20 11:09 Lactic Acid 1.90 mmol/L (0.7-2.0) 11/23/20 16:56 Calcium 8.1 mg/dL (8.4-10.2) L 12/01/20 04:19 Magnesium 2.10 mg/dL (1.7-2.3) 11/23/20 16:56 Total Bilirubin 1.00 mg/dL (0.1-1.2) 12/01/20 04:19 Direct Bilirubin 0.4 mg/dL (0-0.2) H 11/23/20 16:56 Indirect Bilirubin 1.2 mg/dL 11/23/20 16:56 AST 22 units/L (5-40) 12/01/20 04:19 ALT 19 units/L (7-56) 12/01/20 04:19 Alkaline Phosphatase 39 units/L (35-129) 12/01/20 04:19 Total Creatine Kinase 86 units/L (55-170) 11/23/20 16:56 Troponin T < 0.010 ng/mL (0.00-0.029) 11/23/20 16:56 Total Protein 5.7 g/dL (6.3-8.2) L 12/01/20 04:19 Albumin 2.5 g/dL (3.9-5) L 12/01/20 04:19 Albumin/Globulin Ratio 0.8 % 12/01/20 04:19 Lipase 18 units/L (13-60) 11/23/20 16:56 Urine Color Kristina (Yellow) 11/24/20 Unknown Urine Turbidity Clear (Clear) 11/24/20 Unknown Urine pH 5.0 (5.0-7.0) 11/24/20 Unknown Ur Specific [place] 1.056 (1.003-1.030) H 11/24/20 Unknown Urine Protein 100 mg/dl mg/dL (Negative) 11/24/20 Unknown Urine Glucose (UA) Neg mg/dL (Negative) 11/24/20 Unknown Urine Ketones Neg mg/dL (Negative) 11/24/20 Unknown Urine Blood Sm (Negative) 11/24/20 Unknown Urine Nitrite Neg (Negative) 11/24/20 Unknown Urine Bilirubin Neg (Negative) 11/24/20 Unknown Urine Urobilinogen < 2.0 mg/dL (<2.0) 11/24/20 Unknown Ur Leukocyte Esterase Neg (Negative) 11/24/20 Unknown Urine WBC (Auto) 3.0 /HPF (0.0-6.0) 11/24/20 Unknown Urine RBC (Auto) 5.0 /HPF (0.0-6.0) 11/24/20 Unknown Urine Bacteria (Auto) 1+ /HPF (Negative) 11/24/20 Unknown Urine Mucus Few /HPF 11/24/20 Unknown Urine Opiates Screen Presumptive negative 11/24/20 Unknown Urine Methadone Screen Presumptive negative 11/24/20 Unknown Ur Barbiturates Screen Presumptive negative 11/24/20 Unknown Ur Phencyclidine Scrn Presumptive negative 11/24/20 Unknown Ur Amphetamines Screen Presumptive negative 11/24/20 Unknown U Benzodiazepines Scrn Presumptive positive 11/24/20 Unknown Urine Cocaine Screen Presumptive negative 11/24/20 Unknown U Marijuana (THC) Screen Presumptive positive 11/24/20 Unknown Drugs of Abuse Note Disclamer 11/24/20 Unknown Blood Type A POSITIVE 11/23/20 19:09 Antibody Screen Negative 11/23/20 19:09 [place]/IV: Voiding Method Urinal Active Medications - Current Medications Current Medications: Generic Name Dose Route Start Last Admin Trade Name Freq PRN Reason Stop Dose Admin Albuterol 2.5 mg 11/23/20 18:58 Albuterol 2.5 Mg/3 Ml Nebu IH Q3HRT PRN Shortness Of Breath Heparin Sodium (Porcine) 5,000 unit 11/24/20 22:00 12/01/20 09:23 Heparin 5,000 Unit/1 Ml Vial SUB-Q 5,000 unit Q12HR MATEUSZ Administration Hydralazine HCl 5 mg 11/26/20 00:33 12/01/20 11:15 Hydralazine 20 Mg/1 Ml Inj IV 5 mg Q4H PRN Administration Hypertension Hydralazine HCl 10 mg 11/29/20 08:30 12/01/20 05:29 Hydralazine 10 Mg Tab PO 10 mg Q8HR MATEUSZ Administration Piperacillin Sod/Tazobactam Sod 4.5 gm in 100 mls @ 200 mls/hr 11/24/20 03:00 12/01/20 11:15 Zosyn/Ns 4.5gm/100ml IV 200 mls/hr Q8H MATEUSZ Administration Protocol Potassium Chloride/Sodium Chloride 20 meq in 1,000 mls @ 100 mls/hr 11/28/20 13:00 11/30/20 20:31 Ns 0.45/Kcl 20meq IV Infused DIRECT MATEUSZ Infusion Morphine Sulfate 2 mg 11/23/20 18:58 11/30/20 21:13 Morphine 2 Mg/1 Ml Inj IV 2 mg Q4H PRN Administration Pain, Moderate (4-6) Pantoprazole Sodium 40 mg 11/24/20 10:00 12/01/20 09:20 Pantoprazole 40 Mg Inj IV 40 mg BID MATEUSZ Administration Phenol 1 spray 11/25/20 12:00 11/25/20 17:01 Phenol 1.4% 177 Ml Bottle MM 1 spray PRN PRN Administration Sore Throat Sodium Chloride 10 ml 11/23/20 22:00 12/01/20 03:56 Sodium Chloride 0.9% 10 Ml Flush Syringe IV 10 ml BID MATEUSZ Administration Sodium Chloride 10 ml 11/23/20 18:58 Sodium Chloride 0.9% 10 Ml Flush Syringe IV PRN PRN LINE FLUSH Sodium Hypochlorite 1 applic 11/24/20 18:41 11/29/20 18:24 Sodium Hypochlorite, Dakin's Full Strength (0.5%) 473 Ml Topical Soln TP 1 applicatio Q12H PRN Administration Wound Care Nutrition/Malnutrition Assess - Dietary Evaluation Nutrition/Malnutrition Findings: Nutrition Notes Start: 11/30/20 13:02 Freq: Status: Active Protocol: Document 11/30/20 13:03 AL (Rec: 11/30/20 13:15 AL [id number]) Co-Sign 11/30/20 13:03 LP Nutrition Notes Need for Assessment generated from: LOS Initial or Follow up Assessment Other Pertinent Diagnosis Nicotene dependence, acute peritonitis, paralytic ileus Current Diet Clear Liquid Labs/Tests Cr .6 Pertinent Medications Reviewed Height 5 ft 7 in Weight 72.56 kg [place] Body Weight (kg) 67.27 BMI 25.0 Weight Status Appropriate Subjective/Other Information Pt is LOS x 7. He has a surgical midline wound. Appetite isn't "so great," but improving. Pt tolerates diet at 50%. Pt was on NPO clear diet for 7 days before diet was advanced to clear liquids. Percent of energy/protein needs met: 15%/9% Current % PO Fair (50-74%) Minimum of two criteria No Energy Intake (severe) < or equal to 50% Estimated Energy Requirement > or equal to 5 days #2 Nutrition Diagnosis Increased nutrient needs ( specify in comment below) Comments: Protein Etiology Need for wound healing As Evidenced by Signs and Symptoms Pt has surgical midline wound. #1 Nutrition Diagnosis Inadequate oral intake Etiology Clear liquid diet As Evidenced by Signs and Symptoms Pt meets 15%/9% of estimated energy/protein needs. Is patient on ventilator? No Is Patient Ambulatory and/or Out of Bed Yes REE-([facility]-ambulatory/OOB) [ 1968.499 [id number]] Calculation Used for Recommendations [facility] Additional Notes Protein: 90-109 g (1.25-1.5 g/ kg) Fluid: 1 ml/kcal or per MD Nutrition Intervention Change Diet Order: Advance to full liquid diet. If unable to advance, recommend TPN. Add Supplement/Snack (indicate name/kcal Ensure Clear daily + William BID /protein ) Provides kCal: 430 Provides Protein (gm) 13 Goal #1 Advance diet when medically feasible. If diet cannot advance, recommend TPN. Goal #2 ONS + William tolerance. Follow-Up By: 12/02/20 Additional Comments F/U for intakes, ONS + William.
--- NOTE | 2020-12-01 15:11 | Progress Note ---
Assessment and Plan - Patient Problems (1) Perforated abdominal viscus Current Visit: Yes Status: Acute (2) Hypernatremia Current Visit: Yes Status: Acute (3) Paralytic ileus Current Visit: Yes Status: Acute (4) Hypokalemia Current Visit: Yes Status: Acute Plan to address problem: 1) KCl, 40 meq po daily 2) BMP, CBC and H pylori Ab in the am 3) FLD 4) DC Zosyn and IVF 5) Ambulate in cates 6) Home in 24-48 hours if no problems Subjective Date of service: 12/01/20 Patient Reports: Positive: no new complaints, feels better, pain is less, tolerating liquids well, voiding w/o difficulty, flatus, bowel movement, afebrile Objective Vital Signs - 12hr 12/01/20 12/01/20 12/01/20 04:45 07:30 11:10 Temperature 97.8 F 98.7 F 97.4 F L Pulse Rate 102 H 109 H 103 H Respiratory 18 18 18 Rate Blood Pressure 160/94 147/77 164/90 O2 Sat by Pulse 95 95 97 Oximetry 12/01/20 11:15 Temperature Pulse Rate 104 H Respiratory Rate Blood Pressure 164/90 O2 Sat by Pulse Oximetry - Abdomen soft, bowel sounds normal Hernia: other (Minimal tenderness. No rebound or guarding.) - Labs 11/29/20 04:14 12/01/20 04:19 Diabetes panel 12/01/20 Range/Units 04:19 Sodium 137 (137-145) mmol/L Potassium 3.5 L (3.6-5.0) mmol/L Chloride 101.4 (98-107) mmol/L Carbon Dioxide 26 (22-30) mmol/L BUN 8 L (9-20) mg/dL Creatinine 0.5 L (0.8-1.3) mg/dL Glucose 187 H (75-100) mg/dL Calcium 8.1 L (8.4-10.2) mg/dL AST 22 (5-40) units/L ALT 19 (7-56) units/L Alkaline Phosphatase 39 (35-129) units/L Total Protein 5.7 L (6.3-8.2) g/dL Albumin 2.5 L (3.9-5) g/dL Calcium panel 12/01/20 Range/Units 04:19 Calcium 8.1 L (8.4-10.2) mg/dL Albumin 2.5 L (3.9-5) g/dL Pituitary panel 12/01/20 Range/Units 04:19 Sodium 137 (137-145) mmol/L Potassium 3.5 L (3.6-5.0) mmol/L Chloride 101.4 (98-107) mmol/L Carbon Dioxide 26 (22-30) mmol/L BUN 8 L (9-20) mg/dL Creatinine 0.5 L (0.8-1.3) mg/dL Glucose 187 H (75-100) mg/dL Calcium 8.1 L (8.4-10.2) mg/dL Adrenal panel 12/01/20 Range/Units 04:19 Sodium 137 (137-145) mmol/L Potassium 3.5 L (3.6-5.0) mmol/L Chloride 101.4 (98-107) mmol/L Carbon Dioxide 26 (22-30) mmol/L BUN 8 L (9-20) mg/dL Creatinine 0.5 L (0.8-1.3) mg/dL Glucose 187 H (75-100) mg/dL Calcium 8.1 L (8.4-10.2) mg/dL Total Bilirubin 1.00 (0.1-1.2) mg/dL AST 22 (5-40) units/L ALT 19 (7-56) units/L Alkaline Phosphatase 39 (35-129) units/L Total Protein 5.7 L (6.3-8.2) g/dL Albumin 2.5 L (3.9-5) g/dL - Imaging Additional Studies: 1,800 ml on IS
[2020-12-01] MEDS: POTASSIUM CHLORIDE ER 20 MEQ TAB PO SCH (17:35)
[2020-12-02] MEDS: hydrALAZINE 20 MG/1 ML INJ IV PRN (05:26)
[2020-12-02] MEDS: hydrALAZINE 10 MG TAB PO SCH ×2 (05:27→14:52)
[2020-12-02 08:23] LABS: Basophils % (Auto) 0.8 % (0.0-1.8); Eosinophils % (Auto) 0.3 % (0.0-4.3); Hematocrit 30.3 % (35.5-45.6); Hemoglobin 10.9 gm/dl (11.8-15.2); Lymphocytes # (Auto) 0.9 K/mm3 (1.2-5.4); Lymphocytes % (Auto) 22.4 % (13.4-35.0); Mean Corpuscular HGB Conc 36 % (32-34); Mean Corpuscular Volume 93 fl (84-94); Monocytes # (Auto) 0.6 K/mm3 (0.0-0.8); Monocytes % (Auto) 14.3 % (0.0-7.3); Platelet Count 468 K/mm3 (140-440); Red Blood Count 3.27 M/mm3 (3.65-5.03); Red Cell Distribution Width 13.1 % (13.2-15.2)
[2020-12-02 08:46] LABS: Blood Urea Nitrogen 6 mg/dL (9-20); Calcium 7.6 mg/dL (8.4-10.2); Hemolysis Index 0
[2020-12-02 08:55] LABS: BUN/Creatinine Ratio 15
[2020-12-02] MEDS: PANTOPRAZOLE 40 MG INJ IV SCH (10:32)
[2020-12-02] MEDS: HEPARIN 5,000 UNIT/1 ML VIAL SUB-Q SCH (11:32)
[2020-12-02] MEDS: POTASSIUM CHLORIDE ER 20 MEQ TAB PO SCH (11:33)
--- NOTE | 2020-12-02 12:10 | Progress Note ---
Assessment and Plan Assessment and plan: 55 yo male with several days of progressively severe upper abdominal pain associated with nausea. Work-up with CT abdomen and pelvis findings consistent with perforated viscus, evaluated by general surgeon underwent exploratory laparotomy and repair of perforated duodenal ulcer. Currently on IV antibiotics, started on clear liquids last night, advance diet as tolerated, surgery following, surgeon repeated the chest CT abdomen findings consistent with, proctocolitis and small pleural effusion. Continue to monitor continue clear liquids. Assessment and plan -Acute peritonitis; due to perforated duodenal ulcer Continue supportive care antibiotics discontinued Advance her diet to full liquids as tolerated --Perforated abdominal viscus; status post surgical procedure S/P exploratory laparotomy and oversewing of perforated duodenal ulcer. Continue IV antibiotics IV fluids, tolerating clear liquids Advance diet per surgery --Ongoing tobacco use ; smoking cessation counseling Nicotine patch as needed --Hypertension; moderate control Low dose of hydralazine 10 mg p.o. 3 times a day, optimal pain control --Severe malnutrition/hypoalbuminemia; Albumin 2.4, due to underlying disease process Nutrition supplements and supportive care Advance diet as tolerated --DVT prophylaxis; Heparin subcu Ambulate as tolerated, disposition per surgery 11/24/2020. Patient is POD #1 for exploratory laparotomy and oversewing of perforated duodenal ulcer. Continue NG decompression for several days per surgery. Continue IV antibiotics with Zosyn. Continue IV Protonix 11/25/2020. Patient is s/p exploratory laparotomy and oversewing of perforated duodenal ulcer. Continue NG decompression per surgery recommendations. Continue IV antibiotics and IV Protonix. 11/26/2020. Patient is s/p repair and omental patch of perforated duodenal ulcer. Continue NGT to suction per surgery. Continue IV antibiotics and PPI. 11/27/2020. Patient is s/p repair and omental patch of perforated duodenal ulc er. Continue NGT to suction per surgery. Continue IV Zosyn and IV Protonix. 11/28/2020. Patient is s/p repair and omental patch of perforated duodenal ulcer. Continue NGT to suction per surgery. Continue IV antibiotics with Zosyn and PPI with Protonix 40 mg twice daily. Continue ambulation as tolerated. Adequate pain control 11/29/2020; patient was started on clear liquids last night, advance diet Continue antibiotics and supportive care, low-dose hydralazine for moderate hypertension 11/30/2020; patient's repeat CT scan show paralytic ileus, patient is on clear liquids Continue conservative management, surgery following Possible discharge in 1 to 2 days if stable 12/01/2020; patient feels slightly better, advance diet as tolerated per surgery Increase ambulation as tolerated, possible discharge in 1 to 2 days if stable Consults report sent recommendations noted appreciated 12/02/20; patient is tolerating full liquid diet ambulatory Advance the diet as tolerated, discharge when cleared by surgery History Interval history: I have seen and examined the patient at the bedside patient's chart and medications reviewed No new events reported by the nursing staff Patient states tolerating full liquid diet Anxious to go home Vital signs noted Hospitalist Physical - Constitutional Vitals: Temp Pulse Resp BP Pulse Ox 98.7 F 102 H 18 156/85 96 12/02/20 07:40 12/02/20 07:40 12/02/20 07:40 12/02/20 07:40 12/02/20 07:40 General appearance: Present: no acute distress, well-nourished - EENT Eyes: Present: PERRL, EOM intact - Neck Neck: Present: supple, normal ROM - Respiratory Respiratory effort: normal Respiratory: bilateral: diminished, negative: rales, rhonchi, wheezing - Cardiovascular Rhythm: regular Heart Sounds: Present: S1 & S2 - Extremities Extremities: no ischemia, No edema - Abdominal General gastrointestinal: soft, non-tender, non-distended, normal bowel sounds - Integumentary Integumentary: Present: clear, warm - Psychiatric Psychiatric: appropriate mood/affect, cooperative - Neurologic Neurologic: moves all extremities HEART Score - HEART Score Troponin: Troponin T < 0.010 ng/mL (0.00-0.029) 11/23/20 16:56 Results - Labs CBC & Chem 7: 12/02/20 07:18 12/02/20 07:18 Labs: Laboratory Last Values WBC 4.0 K/mm3 (4.5-11.0) L 12/02/20 07:18 RBC 3.27 M/mm3 (3.65-5.03) L 12/02/20 07:18 Hgb 10.9 gm/dl (11.8-15.2) L 12/02/20 07:18 Hct 30.3 % (35.5-45.6) L 12/02/20 07:18 MCV 93 fl (84-94) 12/02/20 07:18 MCH 33 pg (28-32) H 12/02/20 07:18 MCHC 36 % (32-34) H 12/02/20 07:18 RDW 13.1 % (13.2-15.2) L 12/02/20 07:18 Plt Count 468 K/mm3 (140-440) H 12/02/20 07:18 Lymph % (Auto) 22.4 % (13.4-35.0) 12/02/20 07:18 [place] % (Auto) 14.3 % (0.0-7.3) H 12/02/20 07:18 Eos % (Auto) 0.3 % (0.0-4.3) 12/02/20 07:18 Baso % (Auto) 0.8 % (0.0-1.8) 12/02/20 07:18 Lymph # (Auto) 0.9 K/mm3 (1.2-5.4) L 12/02/20 07:18 [place] # (Auto) 0.6 K/mm3 (0.0-0.8) 12/02/20 07:18 Eos # (Auto) 0.0 K/mm3 (0.0-0.4) 12/02/20 07:18 Baso # (Auto) 0.0 K/mm3 (0.0-0.1) 12/02/20 07:18 Seg Neutrophils % 62.2 % (40.0-70.0) 12/02/20 07:18 Seg Neutrophils # 2.5 K/mm3 (1.8-7.7) 12/02/20 07:18 PT 14.3 Sec. (12.2-14.9) 11/23/20 16:56 INR 1.13 (0.87-1.13) 11/23/20 16:56 Sodium 136 mmol/L (137-145) L 12/02/20 07:18 Potassium 3.8 mmol/L (3.6-5.0) 12/02/20 07:18 Chloride 100.4 mmol/L (98-107) 12/02/20 07:18 Carbon Dioxide 25 mmol/L (22-30) 12/02/20 07:18 Anion Gap 14 mmol/L 12/02/20 07:18 BUN 6 mg/dL (9-20) L 12/02/20 07:18 Creatinine 0.4 mg/dL (0.8-1.3) L 12/02/20 07:18 Estimated GFR > 60 ml/min 12/02/20 07:18 BUN/Creatinine Ratio 15 % 12/02/20 07:18 Glucose 181 mg/dL (75-100) H 12/02/20 07:18 POC Glucose 293 mg/dL (70-105) H 12/02/20 11:52 Lactic Acid 1.90 mmol/L (0.7-2.0) 11/23/20 16:56 Calcium 7.6 mg/dL (8.4-10.2) L 12/02/20 07:18 Magnesium 2.10 mg/dL (1.7-2.3) 11/23/20 16:56 Total Bilirubin 1.00 mg/dL (0.1-1.2) 12/01/20 04:19 Direct Bilirubin 0.4 mg/dL (0-0.2) H 11/23/20 16:56 Indirect Bilirubin 1.2 mg/dL 11/23/20 16:56 AST 22 units/L (5-40) 12/01/20 04:19 ALT 19 units/L (7-56) 12/01/20 04:19 Alkaline Phosphatase 39 units/L (35-129) 12/01/20 04:19 Total Creatine Kinase 86 units/L (55-170) 11/23/20 16:56 Troponin T < 0.010 ng/mL (0.00-0.029) 11/23/20 16:56 Total Protein 5.7 g/dL (6.3-8.2) L 12/01/20 04:19 Albumin 2.5 g/dL (3.9-5) L 12/01/20 04:19 Albumin/Globulin Ratio 0.8 % 12/01/20 04:19 Lipase 18 units/L (13-60) 11/23/20 16:56 Urine Color Kristina (Yellow) 11/24/20 Unknown Urine Turbidity Clear (Clear) 11/24/20 Unknown Urine pH 5.0 (5.0-7.0) 11/24/20 Unknown Ur Specific [place] 1.056 (1.003-1.030) H 11/24/20 Unknown Urine Protein 100 mg/dl mg/dL (Negative) 11/24/20 Unknown Urine Glucose (UA) Neg mg/dL (Negative) 11/24/20 Unknown Urine Ketones Neg mg/dL (Negative) 11/24/20 Unknown Urine Blood Sm (Negative) 11/24/20 Unknown Urine Nitrite Neg (Negative) 11/24/20 Unknown Urine Bilirubin Neg (Negative) 11/24/20 Unknown Urine Urobilinogen < 2.0 mg/dL (<2.0) 11/24/20 Unknown Ur Leukocyte Esterase Neg (Negative) 11/24/20 Unknown Urine WBC (Auto) 3.0 /HPF (0.0-6.0) 11/24/20 Unknown Urine RBC (Auto) 5.0 /HPF (0.0-6.0) 11/24/20 Unknown Urine Bacteria (Auto) 1+ /HPF (Negative) 11/24/20 Unknown Urine Mucus Few /HPF 11/24/20 Unknown Urine Opiates Screen Presumptive negative 11/24/20 Unknown Urine Methadone Screen Presumptive negative 11/24/20 Unknown Ur Barbiturates Screen Presumptive negative 11/24/20 Unknown Ur Phencyclidine Scrn Presumptive negative 11/24/20 Unknown Ur Amphetamines Screen Presumptive negative 11/24/20 Unknown U Benzodiazepines Scrn Presumptive positive 11/24/20 Unknown Urine Cocaine Screen Presumptive negative 11/24/20 Unknown U Marijuana (THC) Screen Presumptive positive 11/24/20 Unknown Drugs of Abuse Note Disclamer 11/24/20 Unknown Blood Type A POSITIVE 11/23/20 19:09 Antibody Screen Negative 11/23/20 19:09 [place]/IV: Voiding Method Urinal Active Medications - Current Medications Current Medications: Generic Name Dose Route Start Last Admin Trade Name Freq PRN Reason Stop Dose Admin Albuterol 2.5 mg 11/23/20 18:58 Albuterol 2.5 Mg/3 Ml Nebu IH Q3HRT PRN Shortness Of Breath Heparin Sodium (Porcine) 5,000 unit 11/24/20 22:00 12/01/20 21:55 Heparin 5,000 Unit/1 Ml Vial SUB-Q 5,000 unit Q12HR MATEUSZ Administration Hydralazine HCl 5 mg 11/26/20 00:33 12/02/20 05:26 Hydralazine 20 Mg/1 Ml Inj IV 5 mg Q4H PRN Administration Hypertension Hydralazine HCl 10 mg 11/29/20 08:30 12/02/20 05:27 Hydralazine 10 Mg Tab PO 10 mg Q8HR MATEUSZ Administration Morphine Sulfate 2 mg 11/23/20 18:58 11/30/20 21:13 Morphine 2 Mg/1 Ml Inj IV 2 mg Q4H PRN Administration Pain, Moderate (4-6) Pantoprazole Sodium 40 mg 11/24/20 10:00 12/01/20 21:55 Pantoprazole 40 Mg Inj IV 40 mg BID MATEUSZ Administration Phenol 1 spray 11/25/20 12:00 11/25/20 17:01 Phenol 1.4% 177 Ml Bottle MM 1 spray PRN PRN Administration Sore Throat Potassium Chloride 40 meq 12/01/20 16:00 12/01/20 17:35 Potassium Chloride Er 20 Meq Tab PO 40 meq QDAY MATEUSZ Administration Sodium Chloride 10 ml 11/23/20 22:00 12/01/20 21:57 Sodium Chloride 0.9% 10 Ml Flush Syringe IV 10 ml BID MATEUSZ Administration Sodium Chloride 10 ml 11/23/20 18:58 Sodium Chloride 0.9% 10 Ml Flush Syringe IV PRN PRN LINE FLUSH Sodium Hypochlorite 1 applic 11/24/20 18:41 11/29/20 18:24 Sodium Hypochlorite, [place]'s Full Strength (0.5%) 473 Ml Topical Soln TP 1 applicatio Q12H PRN Administration Wound Care Nutrition/Malnutrition Assess - Dietary Evaluation Nutrition/Malnutrition Findings: Nutrition Notes Start: 11/30/20 13:02 Freq: Status: Active Protocol: Document 11/30/20 13:03 AL (Rec: 11/30/20 13:15 AL [id number]) Co-Sign 11/30/20 13:03 LP Nutrition Notes Need for Assessment generated from: LOS Initial or Follow up Assessment Other Pertinent Diagnosis Nicotene dependence, acute peritonitis, paralytic ileus Current Diet Clear Liquid Labs/Tests Cr .6 Pertinent Medications Reviewed Height 5 ft 7 in Weight 72.56 kg [place] Body Weight (kg) 67.27 BMI 25.0 Weight Status Appropriate Subjective/Other Information Pt is LOS x 7. He has a surgical midline wound. Appetite isn't "so great," but improving. Pt tolerates diet at 50%. Pt was on NPO clear diet for 7 days before diet was advanced to clear liquids. Percent of energy/protein needs met: 15%/9% Current % PO Fair (50-74%) Minimum of two criteria No Energy Intake (severe) < or equal to 50% Estimated Energy Requirement > or equal to 5 days #2 Nutrition Diagnosis Increased nutrient needs ( specify in comment below) Comments: Protein Etiology Need for wound healing As Evidenced by Signs and Symptoms Pt has surgical midline wound. #1 Nutrition Diagnosis Inadequate oral intake Etiology Clear liquid diet As Evidenced by Signs and Symptoms Pt meets 15%/9% of estimated energy/protein needs. Is patient on ventilator? No Is Patient Ambulatory and/or Out of Bed Yes REE-([facility]-ambulatory/OOB) [ 1968.499 [id number]] Calculation Used for Recommendations [facility] Additional Notes Protein: 90-109 g (1.25-1.5 g/ kg) Fluid: 1 ml/kcal or per MD Nutrition Intervention Change Diet Order: Advance to full liquid diet. If unable to advance, recommend TPN. Add Supplement/Snack (indicate name/kcal Ensure Clear daily + William BID /protein ) Provides kCal: 430 Provides Protein (gm) 13 Goal #1 Advance diet when medically feasible. If diet cannot advance, recommend TPN. Goal #2 ONS + William tolerance. Follow-Up By: 12/02/20 Additional Comments F/U for intakes, ONS + William.
[2020-12-02 15:48] VITALS: BP 158/79
[2020-12-02] MEDS ORDERED: PANTOPRAZOLE 40 MG TAB PO SCH (16:30)
--- NOTE | 2020-12-02 17:09 | Progress Note ---
Assessment and Plan - Patient Problems (1) Perforated abdominal viscus Current Visit: Yes Status: Acute Plan to address problem: 1) Okay for discharge 2) PPI for at least 2 months 3) Narcotic of choice 4) Diet as tolerated 5) is comfortable with wound care. 6) No lifting or straining 7) No NSAIDS 8) F/u in my office in 7-10 days (2) Hypernatremia Current Visit: Yes Status: Acute (3) Paralytic ileus Current Visit: Yes Status: Acute (4) Hypokalemia Current Visit: Yes Status: Acute Subjective Date of service: 12/02/20 Patient Reports: Positive: no new complaints, feels better, pain is less, tolerating liquids well, flatus, bowel movement, afebrile Objective Vital Signs - 12hr 12/02/20 12/02/20 12/02/20 05:22 05:26 05:27 Temperature 98.9 F Pulse Rate 99 H 99 H 99 H Respiratory 20 Rate Blood Pressure 155/92 156/90 156/90 Blood Pressure [Left] O2 Sat by Pulse 95 Oximetry 12/02/20 12/02/20 07:40 15:15 Temperature 98.7 F 98.6 F Pulse Rate 102 H 115 H Respiratory 18 18 Rate Blood Pressure 156/85 Blood Pressure 158/79 [Left] O2 Sat by Pulse 96 98 Oximetry - Abdomen PM_46_[id number] 4, PM_46_EXABD1 6, PM_46_EXABD1 8 Hernia: none - Labs 12/02/20 07:18 12/02/20 07:18 Diabetes panel 12/02/20 Range/Units 07:18 Sodium 136 L (137-145) mmol/L Potassium 3.8 (3.6-5.0) mmol/L Chloride 100.4 (98-107) mmol/L Carbon Dioxide 25 (22-30) mmol/L BUN 6 L (9-20) mg/dL Creatinine 0.4 L (0.8-1.3) mg/dL Glucose 181 H (75-100) mg/dL Calcium 7.6 L (8.4-10.2) mg/dL Calcium panel 12/02/20 Range/Units 07:18 Calcium 7.6 L (8.4-10.2) mg/dL Pituitary panel 12/02/20 Range/Units 07:18 Sodium 136 L (137-145) mmol/L Potassium 3.8 (3.6-5.0) mmol/L Chloride 100.4 (98-107) mmol/L Carbon Dioxide 25 (22-30) mmol/L BUN 6 L (9-20) mg/dL Creatinine 0.4 L (0.8-1.3) mg/dL Glucose 181 H (75-100) mg/dL Calcium 7.6 L (8.4-10.2) mg/dL Adrenal panel 12/02/20 Range/Units 07:18 Sodium 136 L (137-145) mmol/L Potassium 3.8 (3.6-5.0) mmol/L Chloride 100.4 (98-107) mmol/L Carbon Dioxide 25 (22-30) mmol/L BUN 6 L (9-20) mg/dL Creatinine 0.4 L (0.8-1.3) mg/dL Glucose 181 H (75-100) mg/dL Calcium 7.6 L (8.4-10.2) mg/dL
--- NOTE | 2020-12-02 18:01 | Discharge Summary ---
Providers - Providers Date of Admission: 11/23/20 18:58 Date of discharge: 12/02/20 Attending physician: PAPI QUIGLEY 11/23/20 18:54 Consult to Physician [CONS] Urgent Comment: Dr. Shearer spoke with Dr. 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 Hospital course: 55 yo male with several days of progressively severe upper abdominal pain associated with nausea. Work-up with CT abdomen and pelvis findings consistent with perforated viscus, evaluated by general surgeon underwent exploratory laparotomy and repair of perforated duodenal ulcer. Currently on IV antibiotics, started on clear liquids and repeated CT abdomen on 11/29/2020, findings consistent with mild ileus, continue supportive care, symptoms significantly improved gradually advanced diet to full liquids. Patient tolerated full liquids today is ambulatory, without any symptoms, had flatus and a bowel movement Vital signs stable, physical examination prior to discharge did not show any new findings. Surgeon cleared the patient for discharge and follow-up in 1 to 2 weeks. Strongly advised to avoid NSAID group of medications, Protonix , advised not to lift heavy weights or strain and advance her diet as tolerated. Patient is hemodynamically and clinically stable at discharge. Patient also advised nutrition supplements as tolerated Stable at discharge, cleared by surgeon Assessment and plan -Acute peritonitis; due to perforated duodenal ulcer Continue supportive care antibiotics discontinued Advance her diet to full liquids as tolerated --Perforated abdominal viscus; status post surgical procedure S/P exploratory laparotomy and oversewing of perforated duodenal ulcer. Continue IV antibiotics IV fluids, tolerating clear liquids Advance diet per surgery --Ongoing tobacco use ; smoking cessation counseling Nicotine patch as needed --Hypertension; moderate control Low dose of hydralazine 10 mg p.o. 3 times a day, optimal pain control --Severe malnutrition/hypoalbuminemia; Albumin 2.4, due to underlying disease process Nutrition supplements and supportive care Advance diet as tolerated Stable at discharge Disposition: TO HOME OR SELFCARE Final Discharge Diagnosis (Prints w/discharge instructions): Perforated duodenal ulcer. s/pExploratory laparotomy and oversewing of perforated ulcer. Acute peritonitis. Hypertension. Severe malnutrition/hypoalbuminemia. Ongoing tobacco use Time spent for discharge: 35 min Core Measure Documentation - Palliative Care Palliative Care/ Comfort Measures: Not Applicable - Core Measures Any of the following diagnoses?: none Exam - Constitutional Vitals: Temp Pulse Resp BP Pulse Ox 98.6 F 115 H 18 158/79 98 12/02/20 15:15 12/02/20 15:15 12/02/20 15:15 12/02/20 15:15 12/02/20 15:15 General appearance: Present: no acute distress, well-nourished - EENT Eyes: Present: PERRL, EOM intact - Neck Neck: Present: supple, normal ROM - Respiratory Respiratory effort: normal Respiratory: bilateral: diminished, negative: rales, rhonchi, wheezing - Cardiovascular Rhythm: regular Heart Sounds: Present: S1 & S2 - Extremities Extremities: no ischemia, No edema - Abdominal General gastrointestinal: Present: soft, non-tender, non-distended, normal bowel sounds, other (Surgical wound intact) - Integumentary Integumentary: Present: clear, warm - Musculoskeletal Musculoskeletal: strength equal bilaterally - Psychiatric Psychiatric: appropriate mood/affect, cooperative - Neurologic Neurologic: moves all extremities Plan Activity: advance as tolerated, other (No lifting weight for 3 to 4 weeks) Diet: advance as tolerated (Full liquid diet, advance as tolerated) Additional Instructions: Surgeon's instruction;. wound care as instructed to patient's . No lifting or straining at least 4 weeks. No NSAIDS group of medications. F/u in Dr. Vazquez's office in 7-10 days. If you have worsening symptoms contact MD or go to nearest emergency room as needed Follow up with: PRIMARY CARE, [Primary Care Provider] - 3-5 Days BOOKER VAZQUEZ MD [Staff Physician] - 7 Days Prescriptions: hydrALAZINE [Apresoline TAB] 25 mg PO Q8HR #90 tab oxyCODONE /ACETAMINOPHEN [Percocet 5/325] 1 tab PO Q6HR PRN #20 tablet PRN Reason: Pain Pantoprazole [Protonix TAB] 40 mg PO BIDAC #60 tablet
== END 2020-12-02 18:50 | disposition home or self-care (01) | DRG 326 ==
LOC: ED 14:53 → IMCU 18:58 → 3B-SURG 23:53
PROVIDERS: ADMIT Internal Medicine; ATTEND Internal Medicine
PROC: 0DQ90ZZ Repair Duodenum, Open Approach (ICD-10-PCS; principal; 2020-11-23)
PROC: 0DRU07Z Replacement of Omentum with Autologous Tissue Substitute, Open Approach (ICD-10-PCS; 2020-11-23)
PROC: 0D9670Z Drainage of Stomach with Drainage Device, Via Natural or Artificial Opening (ICD-10-PCS; 2020-11-23)
DX: K26.5 Chronic or unspecified duodenal ulcer with perforation (principal); K65.9 Peritonitis, unspecified; E43 Unspecified severe protein-calorie malnutrition; F17.213 Nicotine dependence, cigarettes, with withdrawal; E87.0 Hyperosmolality and hypernatremia; K56.0 Paralytic ileus; I10 Essential (primary) hypertension; E87.6 Hypokalemia; R73.9 Hyperglycemia, unspecified; R00.0 Tachycardia, unspecified; Z83.3 Family history of diabetes mellitus; Z68.25 Body mass index [BMI] 25.0-25.9, adult; Z82.49 Family history of ischemic heart disease and other diseases of the circulatory system; Z71.6 Tobacco abuse counseling; Z72.89 Other problems related to lifestyle
CPT/HCPCS: 36415; 74174; 74177; 80048; 80053; 80076; 80307; 81001; 82140; 82550; 82962; 83690; 83735; 84484; 85025; 85610; 86850; 86900; 86901; 87075; 87116; 93005; G0378; C9113; J0360; J1170; J1630; J1644; J1815; J1885; J2250; J2270; J2405; J2543; J2704; J2710; J3010; J7030; J7040; J7120; Q9967